=== PATIENT | female | born 1965 | race Caucasian/White ===

== ENCOUNTER 2023-11-21 21:49 | Emergency (ER) | payer OTHER, SELFPAY ==
--- NOTE | ~2023-11-21 | XR_ITS ---
EXAMINATION: XR CHEST CLINICAL INFORMATION: Cough COMPARISON: None available. TECHNIQUE: Frontal view of the chest was obtained. FINDINGS: Lungs are clear. No consolidation, pneumothorax, or pleural effusion. Cardiac and mediastinal contours are normal. Pulmonary vasculature is unremarkable. Osseous structures are unremarkable. XR/XR chest 1V IMPRESSION: No acute cardiopulmonary findings
[2023-11-21 22:58] VITALS: BP 141/62; PULSE 74; RESP 20; TEMP 36.5; O2SAT 96; BMI 31.0
--- NOTE | 2023-11-21 23:03 | ECG_ITS ---
Test Reason : WEAKNESS Blood Pressure : / mmHG Vent. Rate : 074 BPM Atrial Rate : 074 BPM P-R Int : 138 ms QRS Dur : 078 ms QT Int : 384 ms P-R-T Axes : 035 006 039 degrees QTc Int : 426 ms Normal sinus rhythm Nonspecific ST and T wave abnormality Abnormal ECG No previous ECGs available Referred By: Generic ED Physician Electronically Signed By:CHAPIN CALDERA
[2023-11-21 23:38] LABS: Basophils Percent Auto 0.6 % (0-2); Eosinophils Absolute Auto 0.1 X10*3/uL (0.0-0.4); Eosinophils Percent Auto 2.1 % (0-4); Hematocrit 40.7 % (37.0-47.0); Hemoglobin 13.8 g/dl (12.0-16.0); Imm Gran Abs Auto 0.01 X10*3/uL (0.00-0.03); Imm Gran Pct Auto 0.2 % (0.0-0.4); Lymphocytes Absolute Auto 2.8 X10*3/uL (1.2-4.9); Lymphocytes Percent Auto 42.2 % (20-40); MANUAL DIFF FLAG NO; Mean Corpuscular HGB Conc 33.9 g/dl (31.0-35.0); Mean Corpuscular Hemoglobin 29.6 pg (27.0-33.0); Mean Corpuscular Volume 87.3 fL (80.0-98.0); Mean Platelet Volume 9.9 fL (9.4-12.3); Monocytes Absolute Auto 0.7 X10*3/uL (0.1-1.2); Monocytes Percent Auto 9.9 % (2-11); Platelet Count 254 X10*3/uL (160-400); Red Blood Count 4.66 X10*6/uL (4.20-5.50); Red Cell Distribution Width 11.8 % (11.0-16.0); White Blood Count 6.6 X10*3/uL (4.8-10.8)
[2023-11-21 23:50] LABS: COVID-19 Test Negative (Negative); IDNOW Serial# 152EDE1D
[2023-11-21 23:51] LABS: Anion Gap 15 (12-20); Blood Urea Nitrogen 14 mg/dL (9-16); Calcium 9.8 mg/dL (8.4-10.2); Carbon Dioxide 25 mmol/L (22-29); Chloride 106 mmol/L (96-108); Creatinine Clr Calc Pharmacy 79.6; Estimated Glomerular Filt Rate > 60; Glucose Random 114 mg/dL (60-115); Potassium 3.9 mmol/L (3.3-5.1); Sodium 142 mmol/L (135-145)
[2023-11-21 23:55] LABS: IDNOW Serial# 08D9AD1C; Influenza A Negative (Negative); Influenza B2 Negative (Negative)
[2023-11-22 00:01] LABS: Troponin-I High Sensitivity < 2.7 ng/L (<3.5-17.0)
[2023-11-22 01:22] VITALS: BP 148/77; PULSE 64; RESP 14; TEMP 36.3; O2SAT 97
--- NOTE | 2023-11-22 02:28 | ED.URI ---
HPI - URI/Sore Throat General Chief Complaint: Upper Respiratory Symptoms Stated Complaint: awful cough, hurts to breathe, chest congestion Time Seen by Provider: 11/22/23 02:27 Source: patient Mode of arrival: ambulatory Limitations: no limitations History of Present Illness ED Provider: Dr. Rojas Rios HPI Narrative: 58-year-old female with a history of hyperlipidemia, tobacco use disorder, cocaine use disorder in remission who presents emergency department for evaluation of cough, shortness of breath, myalgias, arthralgias, left-sided chest pain x4 days. Patient states that her symptoms started out with a sore throat but this resolved after 2 days. She states she has had a cough which is nonproductive but persistent. She has left-sided chest pain which is worse with coughing. She feels short of breath at rest and with exertion. She denied fever, chills, nausea, vomiting or diarrhea. Patient does smoke 1/2 pack of cigarettes per day times 30 years. She states that she did use cocaine but stop using cocaine in 2017 and does not use any drugs or drink alcohol. Related Data Previous Rx's ?Medication ?Instructions ?Recorded doxycycline hyclate 100 mg tablet 100 mg PO Q12H 5 days #10 tabs 11/22/23 Allergies Allergy/AdvReac Type Severity Reaction Status Date / Time No Known Allergies Allergy Verified 11/21/23 23:00 Review of Systems Review of Systems: Yes all other systems are reviewed and are negative [facility] Past Medical History [facility] Narrative: Social history: She smokes 1/2 pack of cigarettes per day times 30 years. She denies alcohol use. She denies drug use. Social History Social History Advance Directives: No Advance Directives Information Provided: No Do you have a plan to hurt others: No Plan Physical Exam Vital Signs: Vital Signs: Last Vital Signs Temp 97.4 F 11/22/23 01:22 Pulse 64 11/22/23 01:22 Resp 14 11/22/23 01:22 BP 148/77 H 11/22/23 01:22 Pulse Ox 97 11/22/23 01:22 O2 Del Method Room Air 11/22/23 01:22 BMI result Body Mass Index 31.0 Vital signs were normal except for an elevated blood pressure of 148/77 Exam: General: Awake, alert in no distress Head: Normocephalic, atraumatic EENT: PERRL, Lids normal, sclera normal, conjunctiva normal, nose normal , ears normal, throat without erythema or exudates Neck: Supple, no adenopathy Lung: breath sounds symmetric, no wheezing, rales or rhonchi Chest: symmetric movement, nontender Heart: regular rate and rhythm, normal S1, S2 no murmurs or rubs Abdomen: soft, non-tender, nondistended, normal bowel sounds Back: no vertebral tenderness, no CVAT Extremities: no deformities, moves all extremities symmetrically Neuro: Awake, alert, oriented, normal speech, cranial nerves intact, moves all extremities symmetrically Psych: Pleasant, cooperative Medical Decision Making Medical Decision Making MDM Narrative: 61-year-old female with a history of hyperlipidemia, cocaine use disorder in remission and tobacco use disorder who presents emergency department for evaluation of 4 days of cough, left-sided chest pain, shortness of breath, dyspnea on exertion, myalgias and arthralgias. Vital signs revealed an elevated blood pressure otherwise were unremarkable. Physical examination was unremarkable. Differential diagnosis: ?Includes but is not limited to myocardial infarction, myocardial ischemia, pneumonia, bronchitis, anemia, electrolyte abnormalities Following evaluation was ordered: CBC, CMP, troponin, EKG, chest x-ray, COVID-19, influenza, RSV Patient was initially treated with the following: Doxycycline 100 mg orally, ibuprofen 40 mg orally Course: 03:28 My interpretation patient's laboratory evaluation as follows: CBC was normal. CMP was normal. High sensitive troponin I was below detectable limits. COVID-19, influenza and RSV were negative. Chest x-ray revealed no acute infiltrates EKG was unremarkable. Patient's symptoms are consistent with acute bronchitis given her tobacco use disorder she will be treated for possible bacterial process with doxycycline 100 mg q.12 hours x5 days. She was given her 1st dose here in the emergency department she was also given ibuprofen 40 mg orally for her chest pain. She was given printed and verbal instructions and discharged home. Admission/Observation Consideration of admission/observation: Escalation of care including admission/observation considered Lab Data [facility] Lab Attestation statement: I reviewed the patient's lab results. 11/21/23 23:31 11/21/23 23:31 Labs: Lab Results 11/21/23 11/21/23 Range/Units 23:26 23:31 WBC 6.6 (4.8-10.8) X10*3/uL RBC 4.66 (4.20-5.50) X10*6/uL Hgb 13.8 (12.0-16.0) g/dl Hct 40.7 (37.0-47.0) % MCV 87.3 (80.0-98.0) fL MCH 29.6 (27.0-33.0) pg MCHC 33.9 (31.0-35.0) g/dl RDW 11.8 (11.0-16.0) % Plt Count 254 (160-400) X10*3/uL MPV 9.9 (9.4-12.3) fL Immature Gran % (Auto) 0.2 (0.0-0.4) % Neut % (Auto) 45.0 (45-73) % Lymph % (Auto) 42.2 H (20-40) % [place] % (Auto) 9.9 (2-11) % Eos % (Auto) 2.1 (0-4) % Baso % (Auto) 0.6 (0-2) % Lymph # (Auto) 2.8 (1.2-4.9) X10*3/uL [place] # (Auto) 0.7 (0.1-1.2) X10*3/uL Eos # (Auto) 0.1 (0.0-0.4) X10*3/uL Baso # (Auto) 0.0 (0.0-0.2) X10*3/uL Abs Immat Gran (auto) 0.01 (0.00-0.03) X10*3/uL Absolute Neuts (auto) 3.0 (2.0-8.3) x10*3/uL Absolute Nucleated RBC 0.000 (0.0-0.012) X10*3/uL Nucleated RBC % (auto) 0.0 (0.0-0.2) /100WBC Sodium 142 (135-145) mmol/L Potassium 3.9 (3.3-5.1) mmol/L Chloride 106 (96-108) mmol/L Carbon Dioxide 25 (22-29) mmol/L Anion Gap 15 (12-20) BUN 14 (9-16) mg/dL Creatinine 0.75 (0.5-1.4) mg/dL Estim Creat Clear Calc 79.6 Estimated GFR > 60 Random Glucose 114 (60-115) mg/dL Calcium 9.8 (8.4-10.2) mg/dL Troponin I High Sens < 2.7 (<3.5-17.0) ng/L COVID-19 (BERE) Negative (Negative) COVID-19 Clin Com See Note Influenza Type A (KRISHNA) Negative (Negative) Influenza Type B (KRISHNA) Negative (Negative) Influenza A & B Note See Note Independent Interpretation I performed an independent interpretation of an: Plain X-Ray Interpretation: My independent interpretation patient's chest x-ray is as follows: No acute disease. My independent interpretation patient's 12 EKG done at 23:13 hours is as follows: Normal sinus rhythm rate of 74, normal IN interval, QRS duration QTC interval, no ST segment elevation, no ST segment depression, no significant T-wave abnormalities, no PACs, no PVCs Radiology Impression Discussion of test interpretation with radiology: I have reviewed the radiologist's reading. Radiologist Impression: XR chest 1V IMPRESSION: No acute cardiopulmonary findings Dictated By: Sg Giron MD Discharge Plan Discharge Clinical Impression: Acute bronchitis, Tobacco use disorder Patient Disposition: Home, Self-Care Instructions: Acute Bronchitis (ED) Additional Instructions: Your chest x-ray was unremarkable. Your laboratory evaluation was normal. Your COVID-19, RSV and influenza tests were negative. Your symptoms are consistent with bronchitis which is an infection of your breathing tubes. Take doxycycline 100 mg, 1 pill every 12 hours for 5 days Take ibuprofen 200 mg pills, 2 pills every 6 hours as needed for pain or fever. Take Tylenol (acetaminophen) 500 mg pills, 2 pills every 6 hours as needed for pain or fever. Follow-up with your doctor in 2 days. Please return to the emergency department if your symptoms get worse or if you develop any symptoms that are concerning to you. Prescriptions: New doxycycline hyclate 100 mg tablet 100 mg PO Q12H 5 Days Qty: 10 0RF Print Language: Belarusian
[2023-11-22 03:42] VITALS: BP 137/72; PULSE 58; RESP 20; TEMP 37; O2SAT 97
[2023-11-22] MEDS: Doxycycline Monohydrate 100 MG CAPSULE PO (03:43)
[2023-11-22] MEDS: Ibuprofen 400 MG TABLET PO (03:43)
[2023-11-22 03:50] VITALS: BP 137/72; PULSE 58; RESP 20; TEMP 37; O2SAT 97
== END 2023-11-22 03:50 | disposition home or self-care (01) ==
PROVIDERS: Emergency Provider Emergency Medicine Emergency Medical Services; PCP Internal Medicine
DX: J20.9 Acute bronchitis, unspecified (principal); F17.210 Nicotine dependence, cigarettes, uncomplicated; Z11.52 Encounter for screening for COVID-19
CPT/HCPCS: 36415; 71045; 80048; 84484; 85025; 87502; 87635; 93005; 99284

== ENCOUNTER → 2023-11-21 23:03 | Outpatient (BNV) | payer OTHER, SELFPAY | PROVIDERS: Emergency Provider Emergency Medicine Emergency Medical Services; PCP Internal Medicine; Visit Provider Internal Medicine | DX: R53.1 Weakness (principal); R94.31 Abnormal electrocardiogram [ECG] [EKG] | CPT/HCPCS: 93010 ==

== ENCOUNTER 2024-06-21 10:06 | Emergency (ER) | payer MEDICARE, SELFPAY ==
--- NOTE | ~2024-06-21 | XR_ITS ---
EXAMINATION: XR HAND AND WRIST COMPLETE RIGHT HISTORY: Injury COMPARISON: There are no prior studies available for comparison. FINDINGS: Five views of the right hand and wrist are submitted. Osseous mineralization is normal. There is a faint linear lucency involving the radial styloid which could represent nondisplaced fracture. The bones are otherwise intact. There is no dislocation. There are degenerative changes involving the radial aspect of the carpus. The soft tissues are unremarkable. XR/XR hand wrist RT IMPRESSION: Possible nondisplaced fracture of the radial styloid. Clinical correlation is recommended. Electronically signed by: Lamberto Gomez MD 06/21/2024 11:21 AM JOSH
[2024-06-21 10:29] VITALS: BP 121/70; PULSE 75; RESP 16; TEMP 36.4; O2SAT 97; BMI 31.5
--- OUTSIDE RECORDS SUMMARY | 2024-06-21 11:10 | XMS_ITS | Continuity of Care Document ---
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 Name Role Phone Unavailable Unavailable Unavailable Allergies, [...] EST URINE TEST OFFICE/OUTPATIENT VISIT, EST [facility] [place] [facility] [place] CULTURE SCREEN ONLY Advance Directives Directive Yes / No Effective Date File Name No Information Encounters Encounter Description Practice Location Reason(s) For Visit Diagnoses Date Provider Providers Copied on Encounter [facility], [address], [place], [place], [id number], [place] tel:[phone] [facility] No Information 5 No Information OFFICE/OUTPA TIENT VISIT, EST [facility], [address] [facility] [address], [place], [place], [id number], [place] tel:[phone] [facility] sore throat (chief complaint) Acute pharyngitis 5 No Information [facility], [address], [place], [place], [id number], [place] tel:[phone] [facility] No Information 4 No Information PREV VISIT, EST, AGE 40-64 [facility], [address], [place], [place], [id number], [place] tel:[phone] [facility] preventive exam (chief complaint) Routine Medical ExamNEED FOR PROPHYLACTIC VACCINATION WITH COMBINED DIPHTHERIA-TE TANUS-PERTUSS IS (DTP) (DTAP) VACCINEMultip le neviDecreased visual acuityLump in vaginaRoutine Medical Exam 4 No Information OFFICE/OUTPA TIENT VISIT, EST [facility], [address], [place], [place], [id number], [place] tel:[phone] [facility] [place] F/U LAB RESULTS (chief complaint) Nondependent tobacco use disorderDepre ssive disorder, not elsewhere classifiedLAB ORATORY EXAM NOS 2 No Information [facility], [address], [place], [place], [id number], [place] tel:[phone] [facility] No Information 2 Services Enabling. [address] [place], [address]. tel:[phone] [facility], [address], [place], [place], [id number], [place] tel:[phone] [facility] No Information 2 Services [address]. [address] [place], [address]. tel:[phone] [facility], [address], [place], [place], [id number], [place] tel:[phone] Converted Locations No Information 2 No Information [facility], [address], [place], [place], [id number], [place] tel:[phone] [facility] Other general counseling and advice on contraceptive managementHip joint replacementBr east screening, unspecified 2 No Information [facility], [address], [place], [place], [id number], [place] tel:[phone] [facility] Nondependent tobacco use disorderConju nctivitis, unspecifiedAc lana pharyngitis 2 No Information [facility], [address], [place], [place], [id number], [place] tel:[phone] Converted Locations No Information 2 No Information [facility], [address], [place], [place], [id number], [place] tel:[phone] Converted Locations No Information 1 No Information [facility], [address], [place], [place], [address], [place] tel:[phone] [facility] Pain in joint involving pelvic region and thigh No Information [facility], [address], [place], [place], [id number], [place] tel:[phone] Converted Locations No Information 1 Z-Converted Provider. . [facility], [address], [place], [place], [id number], tel:[phone] [facility] Anxiety disorder in conditions classified elsewhereNond ependent [...] Record Payers Payer name Insurance type Covered constitution party ID Cassidy peguero(s) [facility] [employer] CI [id number] Social History Type Description Quantity Date Captured Comments Sex Female Smoking Status No Information Chief Complaint And Reason For Visit No Information Reason For Referral Reason For Referral No Information Plan Of Treatment Date Type Action Status Goal Unhealthy drug use screening . Due on due Goal CT-Colonography. Due on due Goal FIT-DNA. Due on due Goal Zoster vaccine (1st). Due on due Goal Document SOGI Information. D ue on due Goal Td vaccine. Due on due Goal Lipid panel. Due on 015 due Goal Tdap. Due on due Goal Influenza vaccine. Due on due Goal Pap/HPV testing. Due on due Goal PAP. Due on due Goal Mammogram. Due on 5 due Goal APE. Due on due Referral Ordered: MAMMOGRAM SCREENING, BILATERAL Appointment date/timeframe: 12/04/2013 ordered Referral Ordered: COLONOSCOPY SCREENING ordered Referral Ordered: Referral: Dermatology. Evaluate and treat. ordered Referral Ordered: Referral: LEARNING PROGRAM MANAGER. Evaluate and treat. Appointment date/timeframe: 01/11/2014 ordered Referral Ordered: Referral: Store Receiving Specialist. Evaluate and treat. 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
--- NOTE | 2024-06-21 11:11 | ED_ITS ---
HPI - General Adult General Chief complaint: Extremity Problem Stated complaint: R Hand Wrist Pain No Injury Time Seen by Provider: 06/21/24 10:45 Source: patient Mode of arrival: ambulatory Limitations: no limitations History of Present Illness ED Provider: Ruthann [facility] narrative: Patient is a 58-year-old right hand dominant female presenting with complaint of right wrist pain for the past week. Now remembers that she fell onto her right hand around 1-1.5 weeks ago. States did not have pain or swelling initially after fall. Denies weakness, numbness, tingling. complaint: wrist pain Onset (ago): day(s) Quality: aching Pain Consistency: constant Associated symptoms: denies other symptoms Treatments prior to arrival: none Related Data Previous Rx's ?Medication ?Instructions ?Recorded doxycycline hyclate 100 mg tablet 100 mg PO Q12H 5 days #10 tabs 11/22/23 Allergies Allergy/AdvReac Type Severity Reaction Status Date / Time No Known Allergies Allergy Verified 06/21/24 10:32 Review of Systems Review of Systems: As per HPI Yes all other systems are reviewed and are negative Constitutional: Constitutional: Reports as per HPI [facility] Social History Social History Advance Directives: No Advance Directives Information Provided: Yes Do you have a plan to hurt others: No Plan Physical Exam ED Vital Signs: Vital Signs - 24 hr 06/21/24 10:29 Temperature 97.5 F Pulse Rate 75 Respiratory Rate 16 Blood Pressure 121/70 Pulse Oximetry 97 Oxygen Delivery Method Room Air BMI result Body Mass Index 31.5 Vital signs have been reviewed and appear to be correct. Blood pressure normal. Heart rate normal. Respiratory rate normal. Temperature normal. Oxygen saturation normal. Const General: cooperative, healthy appearing and no acute distress Orientation/consciousness: oriented to person, oriented to place, oriented to time and patient oriented x3 Limitations: no limitations HENMT Head: Yes normocephalic and Yes atraumatic Ears: external ears normal General nose exam: Normal external nose present Face and sinus: Yes face symmetric Mouth: oropharynx normal and moist mucous membranes Throat: Yes uvula midline Eyes Pupils: Equal, round and reactive pupils present Neck Neck: Yes normal visual inspection and Yes supple Resp Effort & Inspection: normal respiratory effort and able to speak in complete sentences Auscultation: clear to auscultation bilaterally Cardio Rate: regular rate Rhythm: regular rhythm Heart sounds: S1 normal heart sound present and S2 normal heart sound present GI Palpation (GI): Soft to palpation and nontender Auscultation: normoactive bowel sounds General: Yes no CVA tenderness Back/Spine/Pelvis Back: no CVA tenderness Skin General skin exam: elasticity normal and turgor normal Neuro General: oriented to person, oriented to place, oriented to time, patient oriented x3, moves all extremities, no focal motor deficits and CN's II-XI intact bilaterally Cranial nerves: Yes Equal, round and reactive pupils present Cognition (Neuro): normal cognition Extrem General: Yes full ROM, Yes no pedal edema and Yes no calf tenderness Right upper extremity: wrist Details: tenderness Location: of the distal radius, swelling (distal radius) and abnormal ROM Details: pain with passive ROM during Details: with extension and with flexion and Extremity exam: right hand Details: vascular exam Details: radial pulse present and normal ROM of fingers Psych Mental Status: mental status grossly normal Affect: normal affect Thought process: Normal thought process present Procedures Orthopedic Splinting/Casting Injury #1: Side: right Upper Extremity Injury Location: wrist Upper Extremity Immobilizer: sugar tong splint Additional Comments: +CMS distal prior to and after application of splint Medical Decision Making Medical Decision Making [facility] Narrative: Patient is a 58-year-old right hand dominant female presenting with complaint of right wrist pain for the past week. On exam patient is awake, A+Ox3, VS WNL, afebrile, normal neurological exam without focal deficits, physical exam findings as above. Given reported symptoms and physical exam findings, initial differential includes but is not limited to contusion, fracture, dislocation. X-ray notable for nondisplaced radial styloid fracture. My interpretation is in agreement with the radiologist's interpretation. Results discussed with patient and all questions answered. Patient placed in splint as per procedure note. Will refer to ortho for follow up. Return precautions discussed at bedside. Advised ice, tylenol, ibuprofen. Patient verbalized understanding of and agreement with plan. Differential Diagnosis Differential Diagnoses: The differential diagnosis associated with the presenta tion includes As per [facility] Independent Interpretation I performed an independent interpretation of an: Plain X-Ray Interpretation: Right nondisplaced radial styloid fracture Radiology Impression Discussion of test interpretation with radiology: I have reviewed the radiologist's reading. Radiologist Impression: IMPRESSION: Possible nondisplaced fracture of the radial styloid. Clinical correlation is recommended. External Record Review External record reviewed: Inpatient record, Office record and Outpatient record Discharge Plan Discharge Clinical Impression: Closed fracture of radial styloid Qualifiers: Encounter type: initial encounter Fracture alignment: nondisplaced Laterality: right Qualified Code(s): S52.514A - Nondisplaced fracture of right radial styloid process, initial encounter for closed fracture Patient Disposition: Home, Self-Care Instructions: Arm Fracture in Adults (ED), Wrist Fracture in Adults (ED), Splint Care (ED) Additional Instructions: You have been evaluated in the emergency department today for wrist pain. Your evaluation showed a fracture of your wrist. We have placed your wrist in a splint today, avoid getting the splint wet. Please rest, ice, and elevate your arm to help it heal. Use use Tylenol or ibuprofen per package directions every 6 hours as needed for pain. If necessary, you can alternate these medications and take one medication every 3 hours. For instance, at noon take ibuprofen, then at 3:00 p.m. take Tylenol, then at 6:00 p.m. take ibuprofen. Please follo w-up with the orthopedic surgeon within 1 week. Return to the emergency department if you experience worsening pain, numbness, tingling, change of color in your fingers, or any other concerning symptoms. Prescriptions: No Action doxycycline hyclate 100 mg tablet 100 mg PO Q12H 5 Days Qty: 10 0RF Referrals: [facility] [Provider Group] Stand Alone Forms: Work/School Release Print Language: Khmer
[2024-06-21 13:07] VITALS: BP 122/68; PULSE 71; RESP 16; TEMP 36.7; O2SAT 97
== END 2024-06-21 13:08 | disposition home or self-care (01) ==
PROVIDERS: Emergency Provider Student in an Organized Health Care Education/Training Program; PCP Internal Medicine
DX: S52.514A Nondisplaced fracture of right radial styloid process, initial encounter for closed fracture (principal); M25.531 Pain in right wrist; W19.XXXA Unspecified fall, initial encounter; Y93.89 Activity, other specified; Y92.89 Other specified places as the place of occurrence of the external cause; Y99.8 Other external cause status
CPT/HCPCS: 29125; 73110; 73130; 99282; 99284

== ENCOUNTER 2024-06-25 14:06 | Emergency (ER) | payer MEDICARE, SELFPAY ==
[2024-06-25 15:11] VITALS: BP 127/80; PULSE 81; RESP 18; TEMP 36.7; O2SAT 94; BMI 32.1
--- NOTE | 2024-06-25 15:11 | ED.GENADULT ---
HPI - General Adult General Stated complaint: Needs splint redone Source: patient Mode of arrival: ambulatory Limitations: no limitations History of Present Illness ED Provider: Tena Ramirez NP HPI narrative: Patient is a 59-year-old female who presents to the emergency department for evaluation she states she was seen in the emergency department 06/21/2024, after a fall with resultant right wrist pain. Was diagnosed with a fracture of the radial styloid placed in a sugar-tong splint and discharged home. States that she has outpatient follow-up with orthopedics this week. She presents today as she is complaining of pain and a sensation that my circulation is being cut off requesting re-evaluation of her splint. Is able to move the digits. She reports that last night while resting she noticed the distal tips of her fingers to be turning blue. She elevated her arm and this resolved. She reports at this time she did not continue to have an impaired circulation sensation but does admit that around the elbow it feels very tight Related Data Previous Rx's ?Medication ?Instructions ?Recorded doxycycline hyclate 100 mg tablet 100 mg PO Q12H 5 days #10 tabs 11/22/23 Allergies Allergy/AdvReac Type Severity Reaction Status Date / Time No Known Allergies Allergy Verified 06/25/24 15:17 Review of Systems Review of Systems: Yes all other systems are reviewed and are negative PMFSH Past Medical History Attestation statement: The following information was validated with the patient. Source: old records reviewed Physical Exam ED Appearance: Alert.?Oriented to person, place and time. No acute distress.?Normal affect.? CVS: Heart sounds normal. Normal heart rate and rhythm.? Pulses normal.?? Respiratory: No respiratory distress.? Lung sounds clear to auscultation bilaterally?? Skin: Skin warm and dry.? Normal skin color.? Extremities: No extremity edema.? 2+ radial pulse upon removal of sugar-tong splint. Compartments are soft. Able to move the digits. Able to flex and extend of the elbow. The Sanford bandage was a bit tight particularly around the elbow joint. Neuro: Moves all extremities spontaneously. Sensation intact bilaterally. Ambulates with normal steady gait. Medical Decision Making Medical Decision Making [facility] Narrative: Patient is a 59-year-old female who presents to the emergency department for re-evaluation of sugar-tong splint to the right upper extremity due to a radial styloid fracture, on evaluation the Sanford bandage was a bit tight particularly around the elbow joint, with removal of the fiberglass splint compartments were soft, 2+ radial pulse. Not consistent with neurovascular compromise or compartment syndrome. Sanford bandage was replaced into reports significant improvement in the pressure sensation she was experiencing. She was offered a sling to help alleviate the weight from the splint she however declines. Advised outpatient follow-up with orthopedics as scheduled. Differential Diagnosis Differential Diagnoses: The differential diagnosis associated with the presentation includes (See narrative above) External Record Review External record reviewed: Outpatient record Prescription Management I considered prescription management with: Pain Medication (Acetaminophen/ibuprofen) Discharge Plan Discharge Clinical Impression: Closed fracture of radial styloid Qualifiers: Encounter type: initial encounter Fracture alignment: nondisplaced Laterality: right Qualified Code(s): S52.514A - Nondisplaced fracture of right radial styloid process, initial encounter for closed fracture Patient Disposition: Home, Self-Care Additional Instructions: Be sure to rest, elevate your arm above the level of your chest, apply ice to the area for 10-15 minutes 3-4 times daily follow-up with orthopedics as scheduled. If you develop worsening pain, numbness, tingling, inability to move the hands or fingers you should seek re-evaluation Prescriptions: No Action doxycycline hyclate 100 mg tablet 100 mg PO Q12H 5 Days Qty: 10 0RF Print Language: [place] Islander
--- OUTSIDE RECORDS SUMMARY | 2024-06-25 15:27 | XMS_ITS | Continuity of Care Document ---
Author Organization [facility] Address [address] [place] [address],[address] [place] [address] Phone Care Team Providers Care Marketing Project Coordinator Name Role Phone Unavailable Unavailable Unavailable Allergies, [...] EST URINE TEST OFFICE/OUTPATIENT VISIT, EST Lab Hector Lab [facility]ector CULTURE SCREEN ONLY Advance Directives Directive Yes / No Effective Date File Name No Information Encounters Encounter Description Practice Location Reason(s) For Visit Diagnoses Date Provider Providers Copied on Encounter [facility], [address] [facility] [address], [place], [place], [id number], [place] tel:[phone] [facility] No Information 5 No Information OFFICE/OUTPA TIENT VISIT, EST [facility], [address] [facility] [address], [place], [place], [id number], [place] tel:[phone] [facility] sore throat (chief complaint) Acute pharyngitis 5 No Information [facility], [address] [facility] [address], [place], [place], [id number], [place] tel:[phone] [facility] No Information 4 No Information PREV VISIT, EST, AGE 40-64 [facility], [address] [facility] [address], [place], [place], [id number], [place] tel:[phone] [facility] preventive exam (chief complaint) Routine Medical ExamNEED FOR PROPHYLACTIC VACCINATION WITH COMBINED DIPHTHERIA-TE TANUS-PERTUSS IS (DTP) (DTAP) VACCINEMultip le neviDecreased visual acuityLump in vaginaRoutine Medical Exam 4 No Information OFFICE/OUTPA TIENT VISIT, EST [facility], [address] [facility] [address], [place], [place], [id number], [place] tel:[phone] [facility] F/U LAB RESULTS (chief complaint) Nondependent tobacco use disorderDepre ssive disorder, not elsewhere classifiedLAB ORATORY EXAM NOS 2 No Information [facility], [address], [place], [place], [id number], [place] tel:[phone] [facility] No Information [address] [place], [address]. tel:[phone] [facility], [address], [place], [place], [id number], [place] tel:[phone] [facility] No Information [address] [place], [address]. tel:[phone] [facility], [address] [facility] [address], [place], [place], [id number], [place] tel:[phone] Converted Locations No Information 2 No Information [facility], [address], [place], [place], [id number], [place] tel:[phone] [facility] Other general counseling and advice on contraceptive managementHip joint replacementBr east screening, unspecified 2 No Information [facility], [address], [place], [place], [id number], [place] tel:[phone] [facility] Nondependent tobacco use disorderConju nctivitis, unspecifiedAc fond du lac pharyngitis 2 No Information [facility], [address], [place], [place], [id number], [place] tel:[phone] Converted Locations No Information 2 No Information [facility], [address], [place], [place], [id number], [place] tel:[phone] Converted Locations No Information 1 No Information [facility], [address], [place], [place], [id number], [place] tel:[phone] [facility] Pain in joint involving pelvic region and thigh 1 No Information [facility], [address], [place], [place], [id number], [place] tel:[phone] Converted Locations No Information 1 Z-Converted Provider. . [facility], [address], [place], [place], [id number], tel:[phone] [facility] Anxiety disorder in conditions classified elsewhereNond [...] type Covered constitution party ID Cassidy peguero(s) [facility] CI [id number] Social History Type Description Quantity Date Captured Comments Sex Female Smoking Status No Information Chief Complaint And Reason For Visit No Information Reason For Referral Reason For Referral No Information Plan Of Treatment Date Type Action Status Goal Zoster vaccine (1st). Due on due Goal FIT-DNA. Due on due Goal CT-Colonography. Due on due Goal Unhealthy drug use screening . Due on due Goal Document SOGI Information. D ue on due Goal Lipid panel. Due on 015 due Goal Td vaccine. Due on 24 due Goal APE. Due on due Goal Mammogram. Due on due Goal PAP. Due on due Goal Tdap. Due on due Goal Influenza vaccine. Due on due Goal Pap/HPV testing. Due on due Referral Ordered: MAMMOGRAM SCREENING, BILATERAL Appointment date/timeframe: 12/04/2013 ordered Referral Ordered: COLONOSCOPY SCREENING ordered Referral Ordered: Referral: Dermatology. Evaluate and treat. ordered Referral Ordered: Referral: CODE OFFICIAL. Evaluate and treat. Appointment date/timeframe: 01/11/2014 ordered Referral Ordered: Referral: Human Resources Operations Director. Evaluate and treat. 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
[2024-06-25 15:38] VITALS: BP 124/78; PULSE 78; RESP 18; TEMP 36.6; O2SAT 94
== END 2024-06-25 15:39 | disposition home or self-care (01) ==
PROVIDERS: Emergency Provider Emergency Medicine Emergency Medical Services; PCP Internal Medicine
DX: S52.514A Nondisplaced fracture of right radial styloid process, initial encounter for closed fracture (principal); M25.531 Pain in right wrist; X58.XXXA Exposure to other specified factors, initial encounter; Y93.9 Activity, unspecified; Y92.9 Unspecified place or not applicable; Y99.8 Other external cause status
CPT/HCPCS: 99282

== ENCOUNTER 2024-06-27 10:30 | Outpatient (AMB) | payer MEDICARE, SELFPAY ==
--- NOTE | 2024-06-27 10:40 | A.OFFVIS_ITS ---
Vital Signs 06/27/24 10:46 Height 5 ft 3 in Weight 181 lb BMI 32.1 Intake Visit Reasons: ED f/u RT Closed fracture of radial styloid Intake Note: Kelly is a 58 year old right hand dominant female presents today for a new patient visit for her right wrist pain s/p ED visit on 07/01/24. States she recalls falling about 2-4 weeks ago. She did not feel pain initially however she was seen in ED due to increase of pain and swelling. Xrays taken and was told she has a right hand fracture of radial styloid. She was splinted and referred to orthopedic. Initially she did not think to much of an injury as she has a history of wrist pain. Currently states her pain is located at her [facility] with a current pain level 2 out of 10. Allergies No Known Allergies Allergy (Verified 06/27/24 10:42) HPI HPI ED f/u RT Closed fracture of radial styloid: Details: Kelly is a 59 year old right hand dominant woman who presents for a right radial styloid fracture, etiology unclear, DOI unclear, sometime between 05/28/24-06/14/24. She was seen in the ED 06/21/24 and placed in a Sugar-tong splint. She presents today saying she is doing well overall. She says she has mild pain that she feels particularly near the base of her thumb, but this is tolerable and improved from prior. She says she is unsure how she injured herself, and when exactly it happened. She reports a Hx of falls and says she is unsteady on her feet at times. 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 Review of Systems Const All systems reviewed & are unremarkable except as noted in HPI and below Physical Exam Vital Signs: BMI result Body Mass Index 32.1 Const General: cooperative, healthy appearing and no acute distress Orientation/consciousness: patient oriented x3 HEENT Head: Yes normocephalic and Yes atraumatic Eyes EOM: EOMs intact bilaterally Resp Effort & Inspection: normal respiratory effort and able to speak in complete sentences Cardio Jugular venous distension: no JVD Skin General skin exam: turgor normal Rashes: no rashes Neuro General: patient oriented x3 Extrem Other: Evaluation of Right Upper Extremity: The patient is alert, oriented, and in no acute distress Neuro: Median, Ulnar, Radial nerves motor and sensory intact and sensation is normal to the tips of all digits Vascular: Cap refill brisk ROM: She can make a fist and extend all her digits Skin: No lacerations or abrasions. General: No erythema or evidence of infection. Resolving ecchymosis over the volar aspect of her wrist Tender over the dorsal aspect of the distal radius Tender over the scaphoid tubercle No snuffbox tenderness No tenderness along the ulna No DRUJ tenderness No pain with proximal forearm squeeze Radiographs: 3 views of the right wrist were taken and viewed by me today in clinic. These were also compared to radiographs from 06/21/2024. They show a non-displaced transverse metaphyseal distal radius fracture. There is also a bit of an irregularity at the scaphoid tubercle, fracture unclear Psych Appearance: grossly normal Affect: normal affect Attitude: cooperative Office Procedures AMB Fracture Care Details: Fracture care 49941 Fracture Billing Code: Fracture Billing Code Assessment & Plan Assessment & Plan (1) Distal radius fracture, right: Code(s): S52.501A - Unspecified fracture of the lower end of right radius, initial encounter for closed fracture Category: Medical Plan Assessment & Plan: 1. Right transverse metaphyseal distal radius fracture, nondisplaced Involving the radial styloid Etiology unclear, DOI unclear, date of injury presumed to be around 06/14/24 2. 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 She will follow up in 2 weeks, with X-rays 3V R wrist plus a scaphoid view, OOP We will also reassess the scaphoid at that time Scribed for Shagufta Melo MD by Cam Stinson, director of medical staff services, on 06/27/24 at 10:50 AM, EST. Orders: Orders XR wrist RT min 3V Today M25.531 - Pain in right wrist Medications: Discontinued doxycycline hyclate Discontinued Reason: Patient no longer taking 100 mg PO Q12H 5 days 10 tabs 0RF Coding Level of Care Code New Pt Level 3 (30838) Diagnoses Distal radius fracture, right S52.501A CPT Codes Fracture Care - Fracture Billing Code: Fracture Billing Code ([id number])
[2024-06-27 10:46] VITALS: BMI 32.1
--- OUTSIDE RECORDS SUMMARY | 2024-06-27 12:11 | XMS_ITS | Continuity of Care Document ---
Author Organization [facility] Address [address] [place] [address] 2,[address] [place] [address] Phone Care Team Providers Care Proposal Lead Writer Name Role Phone Unavailable Unavailable Unavailable Allergies, [...] EST URINE TEST OFFICE/OUTPATIENT VISIT, EST [facility] [place] [facility] [place] CULTURE SCREEN ONLY Advance Directives Directive Yes / No Effective Date File Name No Information Encounters Encounter Description Practice Location Reason(s) For Visit Diagnoses Date Provider Providers Copied on Encounter [facility], [address] [facility], [place], [place], [id number], [place] tel:[phone] [facility] No Information 5 No Information OFFICE/OUTPA TIENT VISIT, EST [facility], [address] [facility],[address], [place], [place], [id number], [place] tel:[phone] [facility] sore throat (chief complaint) Acute pharyngitis 5 No Information [facility], [address] [facility] [address], [place], [place], [id number], [place] tel:[phone] [facility] No Information 4 No Information PREV VISIT, EST, AGE 40-64 [facility], [address] [facility] [address], [place], [place], [id number], [place] tel:[phone] [facility] preventive exam (chief complaint) Routine Medical ExamNEED FOR PROPHYLACTIC VACCINATION WITH COMBINED DIPHTHERIA-TE TANUS-PERTUSS IS (DTP) (DTAP) VACCINEMultip le neviDecreased visual acuityLump in vaginaRoutine Medical Exam 4 No Information OFFICE/OUTPA TIENT VISIT, EST [facility], [address] [facility],[address], [place], [place], [id number], [place] tel:[phone] [facility] [address] F/U LAB RESULTS (chief complaint) Nondependent tobacco use disorderDepre ssive disorder, not elsewhere classifiedLAB ORATORY EXAM NOS 2 No Information [facility], [address], [place], [place], [id number], [place] tel:[phone] [facility] No Information 2 Services [address] [place], [address]. tel:[phone] [facility], [address], [place], [place], [id number], [place] tel:[phone] [facility] No Information 2 Services En[address]. [address] [place], [address]. tel:[phone] [facility], [address], [place], [place], [id number], [place] tel:[phone] Converted Locations No Information 2 No Information [facility], [address], [place], [place], [address], [place] tel:[phone] [facility] Other general counseling and advice on contraceptive managementHip joint replacementBr east screening, unspecified 2 No Information [facility], [address], [place], [place], [address], [place] tel:[phone] [facility] Nondependent tobacco use disorderConju nctivitis, unspecifiedAc [place] pharyngitis 2 No Information [facility], [address], [place], [place], [address], [place] tel:[phone] Converted Locations No Information 2 No Information [facility], [address], [place], [place], [address], [place] tel:[phone] Converted Locations No Information 1 No Information [facility], [address], [place], [place], [address], [place] tel:[phone] [facility] Pain in joint involving pelvic region and thigh 1 No Information Saud Franklin [facility], [address], [place], [place], [id number], [place] tel:[phone] Converted Locations No Information 1 Z-Converted Provider. . Saud Franklin [facility], [address], [place], [place], [id number], tel:[phone] [facility] Anxiety disorder in conditions classified elsewhereNond ependent [...] Record Payers Payer name Insurance type Covered republican ID Cassidy peguero(s) [facility] [employer] CI [id number] Social History Type Description Quantity Date Captured [...] Evaluate and treat. ordered Referral Ordered: Referral: NURSE EPIDEMIOLOGIST. Evaluate and treat. Appointment date/timeframe: 01/11/2014 ordered Referral Ordered: Referral: Office Rental Clerk. Evaluate and treat. ordered History Of Present [...] referral Related to Routine Medical Exam referral document clerk, vaginal lump Relat ed to Routine Medical Exam referral optometry, no exam x 3 yrs, needs new eye glass rx Related to Routine Medical Exam Assessments Type Assessment Date No Information Patient Care Teams Name Effective Dates (start - stop) Status Members No Information
== END 2024-06-27 11:12 | disposition home or self-care (01) ==
PROVIDERS: PCP Internal Medicine; Visit Provider Orthopaedic Surgery
DX: S52.501A Unspecified fracture of the lower end of right radius, initial encounter for closed fracture (principal)
CPT/HCPCS: 25600; 99203

== ENCOUNTER → 2024-06-27 10:31 | Outpatient (BNV) | payer MEDICARE, SELFPAY | PROVIDERS: Visit Provider Radiology Diagnostic Radiology | DX: M25.531 Pain in right wrist (principal) | CPT/HCPCS: 73110 ==

== ENCOUNTER 2024-06-27 12:25 | Outpatient (REF) | payer MEDICARE, SELFPAY ==
--- NOTE | ~2024-06-27 | XR_ITS ---
CLINICAL HISTORY: M25.531 - Pain in right wrist 3 view right wrist Comparison: CR/SR - XR HAND WRIST RT - 06/21/24 10:58 EST Findings: Unchanged appearance of the nondisplaced radial styloid fracture. Mild degenerative change at the base of the thumb. No erosions. No radiopaque foreign body. IMPRESSION: 1. Relatively unchanged appearance of the nondisplaced radial styloid fracture. This document has been electronically signed by: Marianna Tran MD on 06/28/2024 06:25:38
--- OUTSIDE RECORDS SUMMARY | 2024-06-29 15:42 | XMS_ITS | Continuity of Care Document ---
Author Organization [facility] Address [address] [place] [address] 2,[address] [place] [address] Phone Care Team Providers Care Human Resources Compliance Manager Name Role Phone Unavailable Unavailable Unavailable Allergies, [...] EST URINE TEST OFFICE/OUTPATIENT VISIT, EST [facility] CULTURE SCREEN ONLY Advance Directives Directive Yes / No Effective Date File Name No Information Encounters Encounter Description Practice Location Reason(s) For Visit Diagnoses Date Provider Providers Copied on Encounter [facility], [address] [facility],[address], [place], [place], [id number], [place] tel:[phone] [facility] No Information 5 No Information OFFICE/OUTPA TIENT VISIT, EST [facility], [address] [facility],[address], [place], [place], [id number], [place] tel:[phone] [facility] sore throat (chief complaint) Acute pharyngitis 5 No Information [facility], [address] [facility] [address], [place], [place], [address], [place] tel:[phone] [facility] No Information 4 No Information PREV VISIT, EST, AGE 40-64 [facility], [address] [facility] [address], [place], [place], [id number], [place] tel:[phone] [facility] preventive exam (chief complaint) Routine Medical ExamNEED FOR PROPHYLACTIC VACCINATION WITH COMBINED DIPHTHERIA-TE TANUS-PERTUSS IS (DTP) (DTAP) VACCINEMultip le neviDecreased visual acuityLump in vaginaRoutine Medical Exam 4 No Information OFFICE/OUTPA TIENT VISIT, EST [facility], [address] [facility],[address], [place], [place], [address], [place] tel:[phone] [facility] [place] F/U LAB RESULTS (chief complaint) Nondependent tobacco use disorderDepre ssive disorder, not elsewhere classifiedLAB ORATORY EXAM NOS 2 No Information [facility], [address], [place], [place], [address], [place] tel:[phone] [facility] No Information 2 Services [address]. [address] [place], [address]. tel:[phone] [facility], [address], [place], [place], [address], [place] tel:[phone] [facility] No Information 2 Services [address]. [address] [place], [address]. tel:[phone] [facility], [address] [facility] [address], [place], [place], [address], [place] tel:[phone] Converted Locations No Information 2 No Information [facility], [address], [place], [place], [address], [place] tel:[phone] [facility] Other general counseling and advice on contraceptive managementHip joint replacementBr east screening, unspecified 2 No Information [facility], [address], [place], [place], [address], [place] tel:[phone] [facility] Nondependent tobacco use disorderConju nctivitis, unspecifiedAc [place] pharyngitis 2 No Information [facility], [address], [place], [place], [address], [place] tel:[phone] Converted Locations No Information 2 No Information [facility], [address], [place], [place], [address], [place] tel:[phone] Converted Locations No Information 1 No Information [facility], [address], [place], [place], [address], [place] tel:[phone] [facility] Pain in joint involving pelvic region and thigh 1 No Information [facility], [address], [place], [place], [address], [place] tel:[phone] Converted Locations No Information 1 Z-Converted Provider. . [facility], [address], [place], [place], [id number], tel:[phone] [facility] Anxiety disorder [...] type Covered constitution party ID Cassidy peguero(s) [facility] [employer] CI [id number] Social History Type Description Quantity Date Captured [...] Influenza vaccine. Due on due Referral Ordered: MAMMOGRAM SCREENING, BILATERAL Appointment date/timeframe: 12/04/2013 ordered Referral Ordered: COLONOSCOPY SCREENING ordered Referral Ordered: Referral: Dermatology. Evaluate and treat. ordered Referral Ordered: Referral: CNC MILLING MACHINIST. Evaluate and treat. Appointment date/timeframe: 01/11/2014 ordered Referral Ordered: Referral: Geospatial Image Analyst. Evaluate and treat. ordered History Of Present [...] referral Related to Routine Medical Exam referral vending service technician, vaginal lump Relat ed to Routine Medical Exam referral optometry, no exam x 3 yrs, needs new eye glass rx Related to Routine Medical Exam Assessments Type Assessment Date No Information Patient Care Teams Name Effective Dates (start - stop) Status Members No Information
== END 2024-06-27 12:26 | disposition home or self-care (01) ==
LOC: HO.HOSX 12:25
PROVIDERS: Visit Provider Orthopaedic Surgery
DX: S52.501A Unspecified fracture of the lower end of right radius, initial encounter for closed fracture (principal); M25.531 Pain in right wrist
CPT/HCPCS: 25600; 73110; 99202

== ENCOUNTER 2024-07-12 09:06 | Outpatient (REF) | payer MEDICARE, SELFPAY ==
--- NOTE | ~2024-07-12 | XR_ITS ---
EXAMINATION: XR WRIST NAVICULAR RIGHT HISTORY: M25.531 - Pain in right wrist COMPARISON: Comparison is made with the prior examinations dated 06/27/2024 and 06/21/2024. FINDINGS: Four views of the right wrist including a scaphoid view are submitted. The bones are osteopenic. The previously described possible nondisplaced fracture of the radial styloid is less well visualized. There is severe degenerative change involving the joint space between the scaphoid and trapezium. The soft tissues are unremarkable. XR/XR wrist RT w scaphoid IMPRESSION: The previously described possible fracture of the radial styloid is less well visualized. Electronically signed by: Lamberto Gomez MD 07/13/2024 07:47 AM JOSH
== END 2024-07-12 09:07 | disposition home or self-care (01) ==
LOC: HO.HOSX 09:06
PROVIDERS: Visit Provider Orthopaedic Surgery
DX: S52.514A Nondisplaced fracture of right radial styloid process, initial encounter for closed fracture (principal); W18.30XA Fall on same level, unspecified, initial encounter; Z91.81 History of falling; Y93.9 Activity, unspecified; Y92.9 Unspecified place or not applicable; Y99.9 Unspecified external cause status; M65.4 Radial styloid tenosynovitis [de Quervain]
CPT/HCPCS: 73110; 99212

== ENCOUNTER 2024-07-12 11:21 | Outpatient (AMB) | payer MEDICARE, SELFPAY ==
--- NOTE | 2024-07-12 11:44 | A.OFFVIS_ITS ---
Vital Signs 07/12/24 11:47 Height 5 ft 3 in Weight 181 lb BMI 32.1 Intake Visit Reasons: OV-RT Closed fracture of radial styloid-w/xray Intake Note: Kelly 59 yr old female presents today for her follow up visit for her right hand Distal radius fracture, approx DOI 06/14/24. At her last visit, patient was given a hand brace to be used as a cast. State she is doing well and is working on her ROM with good improvement. Allergies No Known Allergies Allergy (Verified 07/12/24 11:49) HPI HPI OV-RT Closed fracture of radial styloid-w/xray: Details: Kelly is a 59 year old right hand dominant woman who return for a right nondisplaced distal radius fracture, etiology unclear, DOI unclear, sometime between 05/28/24-06/14/24. She presents today saying she is doing well overall. She denies any pain normally, but says she has some when making a fist. She has been wearing her splint and limiting her finger ROM She says she is unsure how she injured herself, and when exactly it happened. She reports a Hx of falls and says she is unsteady on her feet at times. 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 Resolved ecchymosis over the volar aspect of her wrist Most tender over the 1st dorsal compartment tendons, as they pass over the snuffbox Positive Cathy test on the right Not particularly tender over the dorsal aspect of the distal radius No tenderness to firm palpation over the scaphoid tubercle No tenderness over the snuffbox No tenderness along the ulna No DRUJ tenderness No pain with proximal forearm squeeze Radiographs: 3 views of the right wrist were taken and viewed by me today in clinic. These were also compared to radiographs from 06/27/24. They show a non-displaced transverse metaphyseal distal radius fracture. There is also a bit of an irregularity at the scaphoid tubercle. Completely nontender in this area. Assessment & Plan Assessment & Plan (1) Distal radius fracture, right: Code(s): S52.501A - Unspecified fracture of the lower end of right radius, initial encounter for closed fracture Category: Medical (2) De Quervain's tenosynovitis, right: Code(s): M65.4 - Radial styloid tenosynovitis [de Quervain] Category: Medical Plan Assessment & Plan: 1. Right transverse metaphyseal distal radius fracture, nondisplaced Involving the radial styloid Etiology unclear, DOI unclear, date of injury presumed to be around 06/14/24 2. Right De Quervain's tenosynovitis Positive Cathy test I educated her about this condition I discussed operative and non-operative treatment options She can continue to wear her splint when out of the house with daytime activities. 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 Orders: Orders XR wrist RT w scaphoid Today M25.531 - Pain in right wrist Coding Level of Care Code Global (89427) Diagnoses Distal radius fracture, right S52.501A De Quervain's tenosynovitis, right M65.4
[2024-07-12 11:47] VITALS: BMI 32.1
--- OUTSIDE RECORDS SUMMARY | 2024-07-12 13:41 | XMS_ITS | Encounter Summary ---
Author Organization [facility] Address [address] [place] [address] Care Team Providers Care Tableau Lead Name Role Phone Renetta Agee MD Primary Care Provider [phone] Reason for Visit * Reason Onset Date Comments Employment Physical 07/10/2024 Encounter Details Date Type Department Care Team (Late st Contact Info) Description 07/10/2024 Telephone Adult Medicine [facility] [address] [place] [address] Renetta Agee MD [address] [place] [address] Employment Physical Social History Tobacco Use Types Packs/Day Years Used Date Smoking Tobacco: Every Day Smokeless Tobacco: Never Alcohol Use Standard Drinks/Week Comments Not Currently 0 (1 standard drink = 0.6 oz pur e alcohol) Sex and Gender Information Value Date Recorded Sex Assigned at Not on file Gender Identity Not on file Sexual Orientation Not on file documented as of this encounter Progress Notes * Mya Sands RN - 07/10/2024 3:37 PM EST Pt needs urgent PE to continue working , will book with pcp for 07/25 * Evan Bell - 07/10/2024 3:16 PM EST The patient is calling due to performing a physical for her employer. The patient stated that this physical will need to be within the next 3- 6 weeks, if possible. Please Advise. documented in this encounter Plan of Treatment Upcoming Encounters Date Type Department Care Team (Late st Contact Info) Description 07/25/2024 10:00 AM EST Office Visit Adult Medicine [facility] [address] [place] [address] Renetta Agee MD [address] [place] [address] documented as of this encounter Visit Diagnoses Not on filedocumented in this encounter Care Teams Tableau Lead Relationship Specialty Start Date End Date Renetta Agee MD [address] [facility] [place] [address] PCP - General 05/12/22 documented as of this encounter
--- OUTSIDE RECORDS SUMMARY | 2024-07-12 13:41 | XMS_ITS | Continuity of Care Document ---
Author Organization [facility] Address [address] [place] [address] 2,[address] [place] [address] Phone Care Team Providers Care Construction Controller Name Role Phone Unavailable Unavailable Unavailable Allergies, [...] EST URINE TEST OFFICE/OUTPATIENT VISIT, EST Lab [place] [facility] [place] CULTURE SCREEN ONLY Advance Directives Directive Yes / No Effective Date File Name No Information Encounters Encounter Description Practice Location Reason(s) For Visit Diagnoses Date Provider Providers Copied on Encounter [facility], [address] [facility],[address], [place], [place], [id number], [place] tel:[phone] [facility] No Information 5 No Information OFFICE/OUTPA TIENT VISIT, EST [facility], [address] [facility],[address], [place], [place], [address], [place] tel:[phone] [facility] sore throat (chief complaint) Acute pharyngitis 5 No Information [facility], [address], [place], [place], [address], [place] tel:[phone] [facility] No Information 4 No Information PREV VISIT, EST, AGE 40-64 [facility], [address], [place], [place], [address], [place] tel:[phone] [facility] preventive exam (chief complaint) Routine Medical ExamNEED FOR PROPHYLACTIC VACCINATION WITH COMBINED DIPHTHERIA-TE TANUS-PERTUSS IS (DTP) (DTAP) VACCINEMultip le neviDecreased visual acuityLump in vaginaRoutine Medical Exam 4 No Information OFFICE/OUTPA TIENT VISIT, EST [facility], [address] [facility],[address], [place], [place], [address], [place] tel:[phone] [facility] [place] F/U LAB RESULTS (chief complaint) Nondependent tobacco use disorderDepre ssive disorder, not elsewhere classifiedLAB ORATORY EXAM NOS 2 No Information [facility], [address], [place], [place], [address], [place] tel:[phone] [facility] No Information 2 Services [address]. [address] [place], [address]. tel:[phone] [facility], [address], [place], [place], [address], [place] tel:[phone] [facility] No Information 2 Services Enabling. [address] [place], [address]. tel:[phone] [facility], [address], [place], [place], [address], [place] tel:[phone] Converted Locations No Information 2 No Information [facility], [address], [place], [place], [address], [place] tel:[phone] [facility] Other general counseling and advice on contraceptive managementHip joint replacementBr east screening, unspecified 2 No Information [facility], [address], [place], [place], [address], [place] tel:[phone] [facility] Nondependent tobacco use disorderConju nctivitis, unspecifiedAc [place] pharyngitis 2 No Information [facility], [address], [place], [place], [address], [place] tel:[phone] Converted Locations No Information 2 No Information [facility], [address], [place], [place], [address], [place] tel:[phone] Converted Locations No Information 1 No Information [facility], [address], [place], [place], [address], [place] tel:[phone] [facility] Pain in joint involving pelvic region and thigh 1 No Information [facility]aud [facility], [address], [place], [place], [address], [place] tel:[phone] Converted Locations No Information 1 Z-Converted Provider. . Saud [facility], [address], [place], [place], [address], tel:[phone] [facility] Anxiety disorder in conditions classified elsewhereNond [...] Record Payers Payer name Insurance type Covered alliance party ID Cassidy peguero(s) [facility] [employer] CI [id number] Social History Type Description Quantity Date Captured [...] Evaluate and treat. ordered Referral Ordered: Referral: Product Delivery Specialist. Evaluate and treat. ordered Referral Ordered: COLONOSCOPY SCREENING ordered Referral Ordered: Referral: CARDIAC SPECIALIST. Evaluate and treat. Appointment date/timeframe: 01/11/2014 ordered Referral Ordered: MAMMOGRAM SCREENING, BILATERAL Appointment [...] referral Related to Routine Medical Exam referral dianeticist, vaginal lump Relat ed to Routine Medical Exam referral optometry, no exam x 3 yrs, needs new eye glass rx Related to Routine Medical Exam Assessments Type Assessment Date No Information Patient Care Teams Name Effective Dates (start - stop) Status Members No Information
--- OUTSIDE RECORDS SUMMARY | 2024-07-12 13:41 | XMS_ITS | Clinical Summary ---
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 01/06/2024 Active atomoxetine (STRATTERA) 25 mg capsule Take 1 capsule (25 mg total) by mouth 1 (one) time each day. Active bisacodyL (DULCOLAX) 5 mg EC tablet Take 2 tabs at 6pm as directed. 04/30/2023 Active buspirone HCl (BUSPAR ORAL) Take by mouth. Active citalopram hydrobromide (CELEXA ORAL) Take by mouth. Active lamoTRIgine (LaMICtal) 150 mg tablet Take 1 tablet (150 mg total) by mouth 1 (one) time each day. Active Active Problems Problem Noted Date Diagnosed Date Cigarette smoker motivated to quit 09/28/2023 Obesity (BMI 30-39.9) 09/28/2023 Hypercholesterolemia 05/28/2023 Anxiety and depression 02/19/2023 Attention deficit disorder (ADD) without hyperac tivity 02/19/2023 Encounters Date Type Department Care Team Description 07/10/2024 Telephone Adult Medicine [address] [phone] Renetta Agee MD Employment Physical 05/26/2024 Telephone Adult Medicine [address] [phone] Renetta Agee MD Fitting for DME from Last 3 Months Surgical History Surgery Date Site/Laterality Comments ORTHOPEDIC SURGERY PROCEDURE: HISTORICAL ORTHOPEDIC SURGERY Family History Medical History Relation Name Comments Stomach cancer Aunt Hypertension Father Melanoma Father Hypertension Mother Lung cancer Uncle 1 Lung cancer Uncle 2 Relation Name Status Comments Aunt Alive Father Mother Uncle 1 Other Uncle 2 Alive Social History Tobacco Use Types Packs/Day Years Used Date Smoking Tobacco: Every Day Smokeless Tobacco: Never Alcohol Use Standard Drinks/Week Comments Not Currently 0 (1 standard drink = 0.6 oz pur e alcohol) Sex and Gender Information Value Date Recorded Sex Assigned at Not on file Gender Identity Not on file Sexual Orientation Not on file Obstetrics History Last Filed Vital Signs Vital Sign Reading Time Taken Comments Blood Pressure 104/66 09/28/2023 3:11 PM EDT Pulse 75 09/28/2023 3:11 PM EDT Temperature - - Respiratory Rate - - Oxygen Saturation - - Inhaled Oxygen Concentration - - Weight 79.4 kg (175 lb) 09/28/2023 3:11 PM EDT Height 160 cm (5' 3 ) 09/28/2023 3:11 PM EDT Body Mass Index 31 09/28/2023 3:11 PM EDT Plan of Treatment Upcoming Encounters Date Type Department Care Team (Late st Contact Info) Description 07/25/2024 10:00 AM EST Office Visit Adult Medicine [address] [phone] Renetta Agee MD [address] [place] [id number] Health Maintenance Due Date Last Done Comments Breast Cancer Screening 1965 Pneumococcal Vaccine: Pediat rics (0 to 5 Years) and At-Risk Patients (6 to 64 Years) (1 of 2 - PCV) 1969 DTaP,Tdap,and Td Vaccines (1 - Tdap) 1982 Hepatitis A Vaccines (1 of 2 - Risk 2-dose series) 1982 Zoster Vaccines (1 of 2) 2013 Depression Screening 07/08/2023 HIV Screening 07/08/2023 Social Influencers of Health Screening 07/08/2023 COVID-19 Vaccine (1 - 2023-2 5 season) 2024 Influenza Vaccine (#1) 2024 Cervical Cancer Screening: HPV 02/26/2028 02/25/2023 Cholesterol Screening (Lipid Panel) 05/27/2028 05/27/2023 Colorectal Cancer Screening: Colonoscopy 05/14/2033 05/14/2023 RSV Immunization Patients 60 + Years Old (1 - 1-dose 75+ series) 2038 Hepatitis C Screening Completed 02/12/2023 HIB Vaccines Aged Out No longer eligi ble based on patient's age to complete this topic HPV Vaccines Aged Out No longer eligi ble based on patient's age to complete this topic Hepatitis B Vaccines Aged Out No long er eligible based on patient's age to complete this topic IPV Vaccines Aged Out No longer eligi ble based on patient's age to complete this topic MMR Vaccines Aged Out No longer eligi ble based on patient's age to complete this topic Meningococcal ACWY Vaccine Aged Out N o longer eligible based on patient's age to complete this topic RSV Immunization Patients Un ramana 20 months Aged Out No longer eligible b ased on patient's age to complete this topic Varicella Vaccines Aged Out No longer eligible based on patient's age to complete this topic Procedures Procedure Name Priority Date/Time Associated Diagnosis Comments LIPID PANEL Routine 05/27/2023 COLONOSCOPY Routine 05/14/2023 HPV Routine 02/25/2023 HEPATITIS C SCREENING Routine 02/12/2023 from Last 3 Months or Most Recently Relevant to Health Maintenance Results * (ABNORMAL) Lipid panel (05/27/2023) LDL/HDL Ratio 3 0 - 4 Triglycerides 87 0 - 150 mg/dL Cholesterol 285(A) 0 - 200 mg/dL HDL 97 40 mg/dL LDL Cholesterol 171(A) 0 - 100 mg/dL Blood Venous blood specimen / Unknown Historical Provider LAB BLOOD ORDERAB LES * Colonoscopy (05/14/2023) [facility] Colonoscopy no interpretation , abstracted Anatomical Region Laterality Modality Other Historical Provider MD MARIA GUADALUPE MORRISON E * Cervical Cancer Screening: HPV (02/25/2023) [facility] Cervical Cancer Screening: HPV negative, abstracted Historical Provider MD MARIA GUADALUPE MORRISON E * Hepatitis C Screening (02/12/2023) [facility] Hepatitis C Screening abstracted Historical Provider MD MARIA GUADALUPE Wright from Last 3 Months or Most Recently Relevant to Health Maintenance Care Teams Automatic Shirring Machine Operator Relationship Specialty Start Date End Date Renetta Agee MD [address] [place] [address] PCP - General 05/12/22
== END 2024-07-12 12:09 | disposition home or self-care (01) ==
PROVIDERS: PCP Internal Medicine; Visit Provider Orthopaedic Surgery
DX: S52.501A Unspecified fracture of the lower end of right radius, initial encounter for closed fracture (principal); M65.4 Radial styloid tenosynovitis [de Quervain]
CPT/HCPCS: 99024

== ENCOUNTER → 2024-07-12 11:36 | Outpatient (BNV) | payer MEDICARE, SELFPAY | PROVIDERS: Visit Provider Radiology Diagnostic Radiology | DX: M25.531 Pain in right wrist (principal) | CPT/HCPCS: 73110 ==

== ENCOUNTER 2024-08-01 10:07 | Outpatient (REF) | payer MEDICARE, SELFPAY ==
--- NOTE | ~2024-08-01 | XR_ITS ---
CLINICAL HISTORY: M25.531 - Pain in right wrist 3 view right wrist Comparison: DX - XR WRIST RT MIN 3V - 06/27/24 10:31 EST Findings: Sclerosis within the area of the radial styloid. Joint space narrowing and periarticular osteophyte formation at the radiocarpal, scaphotrapezial, and 1st carpometacarpal joints is present, indicating osteoarthritis. No radiopaque foreign body. IMPRESSION: Healing radial styloid fracture. This document has been electronically signed by: Wilma Winters MD on 08/02/2024 15:00:13
--- OUTSIDE RECORDS SUMMARY | 2024-08-01 11:04 | XMS_ITS | Encounter Summary ---
Author Organization [facility] Address [address] [place] [address] Care Team Providers Care Neonatologist Name Role Phone Renetta Agee MD Primary Care Provider [phone] Reason for Visit * Reason Onset Date Comments Results 07/27/2024 Encounter Details Date Type Department Care Team ([facility] Contact Info) Description 07/27/2024 Telephone Adult Medicine [address] [phone] Anita Virgen MA Results Social History Tobacco Use Types Packs/Day Years Used Date Smoking Tobacco: Every Day Smokeless Tobacco: Never Alcohol Use Standard Drinks/Week Comments Not Currently 0 (1 standard drink = 0.6 oz pur e alcohol) Comments Unknown Sex and Gender Information Value Date Recorded Sex Assigned at Female 07/28/2024 1:30 PM EST Legal Sex Female 8:22 PM EST Gender Identity Female 07/28/2024 1:30 PM EST Sexual Orientation Straight 07/28/2024 1: 30 PM EST documented as of this encounter Progress Notes * Mya Sands RN - 07/27/2024 10:55 AM EST Pt reassured and will do f/u labs as ordered * Anita Virgen MA - 07/27/2024 10:19 AM EST Swp - disclosed results and scheduled pt for 3 month f/u. Pt requested to speak with a nurse regarding labs documented in this encounter Plan of Treatment Upcoming Encounters Date Type Department Care Team (Late st Contact Info) Description 08/02/2024 9:45 AM EST [facility]ointment [facility] [address] [phone] 10/27/2024 8:30 AM EDT Office Visit Adult Medicine [facility] [address] [place] [address] Renetta Agee MD [address] [place], [place] documented as of this encounter Visit Diagnoses Not on filedocumented in this encounter Care Teams Neonatologist Relationship Specialty Start Date End Date Renetta Agee MD [address] [place], [place] PCP - General 05/12/22 documented as of this encounter
--- OUTSIDE RECORDS SUMMARY | 2024-08-01 11:04 | XMS_ITS | Encounter Summary ---
Author Organization [facility] Address [address] [place] [address] Care Team Providers Care Welcome Wagon Host/Hostess Name Role Phone Renetta Agee MD Primary Care Provider [phone] Reason for Visit * Reason Onset Date Comments Employment Physical 07/10/2024 Encounter Details Date Type Department Care Team ([facility] st Contact Info) Description 07/10/2024 Telephone Adult Medicine [facility] [address] [place] [address] Renetta Agee MD [address] [place], [place] [phone] Employment Physical Social History Tobacco Use Types [...] AM EST Appointment [facility] [address] [phone] 10/27/2024 8:30 AM EDT Office Visit Adult Medicine [facility] [address] [place] [address] Renetta Agee MD [address] [place], [place] documented as of this encounter Visit Diagnoses Not on filedocumented in this encounter Care Teams Welcome Wagon Host/Hostess Relationship Specialty Start Date End Date Renetta Agee MD [address] [place], [place] PCP - General 05/12/22 documented as of this encounter
--- OUTSIDE RECORDS SUMMARY | 2024-08-01 11:05 | XMS_ITS | Encounter Summary ---
Author Organization [facility] Address [address] [place] [address] Care Team Providers Care Street Light Repairer Name Role Phone Renetta Agee MD Primary Care Provider [phone] Reason for Referral * Consultation (Routine) - Pending Review Specialty Diagnoses / Procedures Referred By Nigel roberson Referred To Contact Ophthalmology Diagnoses Annual physical exam Renetta Agee MD [address] [place] [address] Phone: tel: fax: Referral ID Status Reason Start Date Expiration Date Visits Requested Visits Authorized [id number] Pending Review Specialty Services Required 07/25/2024 07/25/2025 1 1 * Imaging (Routine) - Pending Review Specialty Diagnoses / Procedures Referred By Nigel roberson Referred To Contact Radiology Diagnoses Annual physical exam Procedures MG Mammo Digital Screening bilat Renetta Agee MD [address] [place] [address] Phone: tel: fax: [address] [address] Phone: tel: Referral ID Status Reason Start Date Expiration Date V isits Requested Visits Authorized [id number] Pending Review 07/25/2024 07/25/2025 1 1 * Consultation (Urgent) - Pending Review Specialty Diagnoses / Procedures Referred By Nigel roberson Referred To Contact Psychiatry Diagnoses Anxiety and depression Renetta Agee MD [address] [place] [address] Phone: tel: fax: Referral ID Status Reason Start Date Expiration Date Visits Requested Visits Authorized [id number] Pending Review Specialty Services Required 07/25/2024 07/25/2025 1 1 Reason for Visit * Reason Comments Annual Exam Encounter Details Date Type Department Care Team ([facility] Contact Info) Description 07/25/2024 10:00 AM EST Office Visit Adult Medicine [facility] [address] [place] [address] Renetta Agee MD [address] [place] [address] Obesity (BMI 30-39.9) (Primary Dx); Hyperlipidemia, unspecified hyperlipidemia type; Anxiety and depression; Annual physical exam; Attention deficit disorder (ADD) without hyperactivity; Erythrocytosis Social History Tobacco Use Types Packs/Day Years [...] PM EST documented as of this encounter Last Filed Vital Signs Vital Sign Reading Time Taken Comments Blood Pressure 100/66 07/25/2024 10:04 AM EST Pulse 100 07/25/2024 10:04 AM EST Temperature 33.3 ??C (91.9 ??F) 07/25/2024 10:[address] Respiratory Rate 12 07/25/2024 10:04 AM EST Oxygen Saturation - - Inhaled Oxygen Concentration - - Weight 80.3 kg (177 lb) 07/25/2024 10:04 AM EST Height 160 cm (5' 3 ) 07/25/2024 10:04 AM EST Body Mass Index 31.35 07/25/2024 10:04 AM EST documented in this encounter Patient Instructions * Attachments The following attachments cannot be sent through Care Everywhere. * Anxiety Disorder ([place]) * Depression: Chronic Disease ([place]) * Well Visit: 50 to 65 Year Men ([place]) documented in this encounter Progress Notes * Renetta Agee MD - 07/25/2024 10:00 AM EST CHIEF COMPLAINT: Annual Exam IDENTIFIER: Kelly Calle is a 59 y.o. old female. HPI: Patient presents today for annual physical exam. Patient is here to follow-up on hyperlipidemia, anxiety and depression and ADD ROS: The remainder of review of systems is noncontributory. PAST MEDICAL HISTORY: Patient Active Problem List Diagnosis Date Noted Cigarette smoker motivated to quit 09/28/2023 Obesity (BMI 30-39.9) 09/28/2023 Hypercholesterolemia 05/28/2023 Anxiety and depression 02/19/2023 Attention deficit disorder (ADD) without hyperactivity 02/19/2023 SOCIAL HISTORY: Social History Tobacco Use Smoking status: Every Day Smokeless tobacco: Never Substance Use Topics Alcohol use: Not Currently FAMILY HISTORY: Family Status Relation Name Status Mother (Not Specified) Father (Not Specified) Uncle Other Uncle Alive Aunt Alive No partnership data on file Family History Problem Relation Name Age of Onset Hypertension Mother Hypertension Father Melanoma Father Lung cancer Uncle Lung cancer Uncle Stomach cancer Aunt ACTIVE MEDICATIONS: Outpatient Medications Marked as Taking for the 07/25/24 encounter (Office Visit) with Renetta Agee MD Medication Sig Dispense Refill atomoxetine (STRATTERA) 25 mg capsule Take 1 capsule (25 mg total) by mouth 1 (one) time each day. atorvastatin (LIPITOR) 10 mg tablet Take 1 tablet (10 mg total) by mouth 1 (one) time each day. bisacodyL (DULCOLAX) 5 mg EC tablet Take 2 tabs at 6pm as directed. buspirone HCl (BUSPAR ORAL) Take by mouth. citalopram hydrobromide (CELEXA ORAL) Take by mouth. lamoTRIgine (LaMICtal) 150 mg tablet Take 1 tablet (150 mg total) by mouth 1 (one) time each day. ALLERGIES: Patient has no known allergies. PHYSICAL EXAM: Blood pressure 100/66, pulse 100, temperature (!) 33.3 ??C (91.9 ??F), resp. rate 12, height 1.6 m (63 ), weight 80.3 kg (177 lb). Body mass index is 31.35 kg/m??. BMI is greater than 25.0 (above thenormal range) - see Plan APPEARANCE: Alert and in no acute distress EYES: PERRLA, conjunctiva and sclera normal EARS: External ears normal. Canals clear. TMs normal. NOSE/SINUS: Nares normal. Septum midline. Mucosa normal. No drainage or sinus tenderness MOUTH/THROAT: no erythema, lesions, or exudates NECK: Neck supple, no adenopathy, thyroid symmetric and of normal size HEART: RRR with normal S1 and S2, no murmurs, no gallops, no JVD appreciated CHEST: non-tender LUNG: clear to auscultation bilaterally BREAST (FEMALE): Symmetrical, normal consistency without masses LYMPH NODES: grossly normal ABDOMEN: Bowel sounds normoactive, no bruits and soft, non-tender, without organomegaly or palpablemasses BACK: no pain to palpation and good flexion and extension EXTREMITIES: Extremities warm and well perfused without clubbing, cyanosis, or edema NEURO: Awake, alert and oriented x 3 SKIN: Skin color, texture, turgor normal. No rashes or lesions. LABS/IMAGING: Lab Results Component Value Date WBC 6.0 07/25/2024 HGB 15.6 07/25/2024 HCT 47.5 (H) 07/25/2024 MCV 89.3 07/25/2024 Lab Results Component Value Date NA 136 07/25/2024 K 4.4 07/25/2024 CO2 28 07/25/2024 CL 103 07/25/2024 BUN 16 07/25/2024 ALKPHOS 90 07/25/2024 Lab Results Component Value Date CHOL 238 (H) 07/25/2024 LDL 171 (A) 05/27/2023 HDL 84 07/25/2024 TRIG 152 (H) 07/25/2024 Lab Results Component Value Date TSH 3.23 07/25/2024 IMPRESSION: 1. Obesity (BMI 30-39.9) 2. Hyperlipidemia, unspecified hyperlipidemia type 3. Anxiety and depression 4. Annual physical exam 5. Attention deficit disorder (ADD) without hyperactivity PLAN: 1. Health maintenance: The patient presented for an evaluation of general health. As part of this visit, we reviewed the following issues, which are considered an essential part of preventative health in this age group: - Breast cancer screening, which includes clinical exam and mammograms annually - mammogram ordered - Colon cancer screening (colonoscopy every 10 years/annual FOBT plus flexi sigmoidoscopy every 5 years/double-contrast BE every 5 years/Cologuard every 3 years/Annual FOBT) - up to date - Cervical cancer testing every 1-5 years - patient will follow-up with [employer] - Blood pressure annual screening performed - Cholesterol screening every five years - ordered - Nutritional and exercise counseling - patient advised to pursue at least 30 minutes of exercise most days of the week and limit portion sizes - Counseling of injury prevention including fire prevention, smoke alarms and seat belt usage - Screening for depression - care for depression is ongoing - Screening for domestic abuse - Screening for Type 2 diabetes mellitus in those with hypertension and/or hyperlipidemia - Prevention of and/or testing for infectious diseases, which may include Chlamydia, Gonorrhea, Syphilis, HIV, Hepatitis C and Tuberculosis - advice about STD prevention provided - One time hepatitis C screening in all adults - Education about skin cancer - Recommendations about immunizations - patient is due for Tdap immunization but defers this - Recommendation of an eye exam for glaucoma every 2-4 years in this age range - patient will self-refer - Preconception counseling - see Substance & Sexuality section of medical record - Osteoporosis screening for high-risk patients - Screening for substance abuse (including tobacco, alcohol, and recreational drugs) - see Substance & Sexuality section of medical record - Genetic cancer risk screening - NO INDICATION: Hereditary Cancer Syndrome Risk Assessment completed and evaluated. No indication found for genetic testing at this time. - In addition to reviewing these issues, I have reviewed the following sections of the chart: Past Medical History, Social History, and Social History - Did you have a dental visit in the last 12 months? Yes #Anxiety and depression #ADD Plan: Patient currently has the following mental health medications including atomoxetine, buspirone, Celexa and Lamictal Patient referred to psychiatry Patient will clarify medications and notify office #Hyperlipidemia Plan: Patient will continue working on lifestyle changes including diet and exercise Patient will continue Lipitor 10 mg daily Orders Placed This Encounter Procedures MG Mammo Digital Screening bilat Standing Status: Future Standing Expiration Date: 07/25/2025 Order Specific Question: In what REGION should this be scheduled? Answer: [facility] [[id number]] Order Specific Question: In what [place] LOCATION should this be scheduled? Answer: [facility] [address] [facility] [[id number]] CBC and differential Standing Status: Future Number of Occurrences: 1 Standing Expiration Date: 07/25/2025 Comprehensive metabolic panel Standing Status: Future Number of Occurrences: 1 Standing Expiration Date: 07/25/2025 Order Specific Question: Has the Patient Fasted? Answer: No Lipid panel with reflex to direct LDL Standing Status: Future Number of Occurrences: 1 Standing Expiration Date: 07/25/2025 Thyroid stimulating hormone with reflex to free t4 and free t3 Standing Status: Future Number of Occurrences: 1 Standing Expiration Date: 07/25/2025 Hemoglobin A1c Standing Status: Future Number of Occurrences: 1 Standing Expiration Date: 01/22/2025 Ambulatory referral to Psychiatry Standing Status: Future Standing Expiration Date: 07/25/2025 Referral Priority: Urgent Referral Type: Consultation Referral Reason: Specialty Services Required Requested Specialty: Psychiatry Number of Visits Requested: 1 Ambulatory referral to Ophthalmology Standing Status: Future Standing Expiration Date: 07/25/2025 Referral Priority: Routine Referral Type: Consultation Referral Reason: Specialty Services Required Requested Specialty: Ophthalmology Number of Visits Requested: 1 Renetta Agee MD on 07/26/2024 at 4:39 PM EST documented in this encounter Plan of Treatment Upcoming Encounters Date Type Department Care Team (Late st Contact Info) Description 08/02/2024 9:45 AM EST [facility]ointment [facility] at [address] [address] 10/27/2024 8:30 AM EDT Office Visit [facility] [place] [facility] [place] [address] [place] [address] Renetta Agee MD [address] [facility] [place] Scheduled Orders Name Type Priority Associated Diagnoses Orde r Schedule MG Mammo Digital Screening bilat Imaging Routine Annual physical exam Expected: 07/25/2024, Expires: 07/25/2025 CBC and differential Lab Routine Erythrocytosis 1 Occurrences starting 07/26/2024 until 07/26/2025 Scheduled Referrals Name Type Priority Associated Diagnoses Order Schedule Ambulatory referral to Psychiatry Outpatient Referral Routine Anxiety and depression 1 Occurrences starting 07/25/2024 until 07/25/2025 Ambulatory referral to Ophthalmology Outpatient Referral Routine Annual physical exam 1 Occurrences starting 07/25/2024 until 07/25/2025 documented as of this encounter Results * Hemoglobin A1c (07/25/2024 11:15 AM EST) [facility] Hemoglobin A1C 5.2 <6.5 % LAB CHEMISTRY METHOD 07/25/2024 1:56 PM EST [facility] Mean Bld Glu Estim. 103 mg/dL LAB CHEMISTRY METHOD 07/25/2024 1:56 PM EST [facility] Blood Venous blood specimen / Unknown Venipuncture / Unknown 07/25/2024 11:15 AM EST 07/25/2024 11:15 AM EST us Renetta Agee MD LAB BLOOD ORDERABLES Final Result [facility] [address] [place] [address], * Thyroid stimulating hormone with reflex to free t4 and free t3 (07/25/2024 11:15 AM EST) [facility] TSH 3.23 0.40 - 4.00 mcIU/mL LAB CHEMISTRY METHOD 07/25/2024 4:57 PM EST [facility] Blood Venous blood specimen / Unknown Venipuncture / Unknown 07/25/2024 11:15 AM EST 07/25/2024 11:15 AM EST Renetta Agee MD LAB BLOOD ORDERABLES Final Result [facility] [address] [place] [address], [place] [phone] * (ABNORMAL) Lipid panel with reflex to direct LDL (07/25/2024 11:15 AM EST) Cholesterol 238(H) 0 - 200 mg/dL LAB CHEMISTRY METHOD 07/25/2024 5:09 PM EST [facility] Triglycerides 152(H) 0 - 150 mg/dL LAB CHEMISTRY METHOD 07/25/2024 5:09 PM [facility] HDL 84 >=40 mg/dL LAB CHEMISTRY METHOD 07/25/2024 5:09 PM [facility] LDL Calculated 124(H) 0 - 100 mg/dL LAB CHEMISTRY METHOD 07/25/2024 5:09 PM [facility] VLDL Cholesterol Horace 30.4 mg/dL LAB CHEMISTRY METHOD 07/25/2024 5:09 PM [facility] Non HDL Chol. (LDL+VLDL) 154(H) <145 mg/dL LAB CHEMISTRY METHOD 07/25/2024 5:09 PM [facility] Chol/HDL Ratio 2.8 0.0 - 4.4 LAB CHEMISTRY METHOD 07/25/2024 5:09 PM [facility] Blood Venous blood specimen / Unknown Venipuncture / Unknown 07/25/2024 11:15 AM EST 07/25/2024 11:15 AM EST Renetta Agee MD LAB BLOOD ORDERABLES Final Result [facility] [address] [place] [address], [place] [phone] * (ABNORMAL) Comprehensive metabolic panel (07/25/2024 11:15 AM EST) Sodium 136 133 - 145 mmol/L LAB CHEMISTRY METHOD 07/25/2024 5:08 PM [facility] Potassium 4.4 3.5 - 5.5 mmol/L LAB CHEMISTRY METHOD 07/25/2024 5:08 PM [facility] Chloride 103 96 - 110 mmol/L LAB CHEMISTRY METHOD 07/25/2024 5:08 PM [facility] CO2 28 21 - 32 mmol/L LAB CHEMISTRY METHOD 07/25/2024 5:08 PM [facility] Anion Gap 5 3 - 11 LAB CHEMISTRY METHOD 07/25/2024 5:08 PM [facility] Glucose 101(H) 70 - 100 mg/dL LAB CHEMISTRY METHOD 07/25/2024 5:08 PM [facility] BUN 16 5 - 25 mg/dL LAB CHEMISTRY METHOD 07/25/2024 5:08 PM [facility] Creatinine 0.98 0.50 - 1.10 mg/dL LAB CHEMISTRY METHOD 07/25/2024 5:08 PM [facility] eGFR 66 >=60 mL/min/1. 73m2 LAB CHEMISTRY METHOD 07/25/2024 5:08 PM [facility] Comment:Calculation based on the??Chronic Kidney Disease Epidemiology Collaboration (CKD-EPI) equation refit??without adjustment for race. BUN/Creatinine Ratio 16.3 LAB CHEMISTRY METHOD 07/25/2024 5:08 PM [facility] Calcium 9.7 8.5 - 10.5 mg/dL LAB CHEMISTRY METHOD 07/25/2024 5:08 PM [facility] AST (SGOT) 22 10 - 42 unit/L LAB CHEMISTRY METHOD 07/25/2024 5:08 PM [facility] ALT (SGPT) 17 10 - 60 unit/L LAB CHEMISTRY METHOD 07/25/2024 5:08 PM [facility] Alkaline Phosphatase 90 42 - 121 unit/L LAB CHEMISTRY METHOD 07/25/2024 5:08 PM [facility] Total Protein 6.7 6.0 - 8.0 g/dL LAB CHEMISTRY METHOD 07/25/2024 5:08 PM EST [facility] Albumin 3.9 3.2 - 5.0 g/dL LAB CHEMISTRY METHOD 07/25/2024 5:08 PM [facility] Total Bilirubin 0.3 0.0 - 1.4 mg/dL LAB CHEMISTRY METHOD 07/25/2024 5:08 PM [facility] Blood Venous blood specimen / Unknown Venipuncture / Unknown 07/25/2024 11:15 AM EST 07/25/2024 11:15 AM EST us Renetta Agee MD LAB BLOOD ORDERABLES Final Result [facility] [address] [place] [address], documented in this encounter Visit Diagnoses Diagnosis Obesity (BMI 30-39.9)- Primary Hyperlipidemia, unspecified hyperlipidemia type Anxiety and depression Annual physical exam Routine general medical examination at a health care facility Attention deficit disorder (ADD) without hyperactivity Erythrocytosis Polycythemia, secondary documented in this encounter Care Teams Street Light Repairer Relationship Specialty Start Date End Date Renetta Agee MD [address] [place] [address] PCP - General 05/12/22 documented as of this encounter
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
--- OUTSIDE RECORDS SUMMARY | 2024-08-01 11:05 | XMS_ITS | Clinical Summary ---
Author Organization [facility] [address] [facility] Address [address] [place], [place] Phone Care Team Providers Care It Consulting Director Name Role Phone Renetta Agee MD Primary Care Provider +1- [phone] Allergies No known active allergies Medications atorvastatin (LIPITOR) 10 mg tablet Take 1 tablet (10 mg total) by mouth 1 (one) time each day. 4 Active atomoxetine (STRATTERA) 25 mg capsule Take 1 capsule (25 mg total) by mouth 1 (one) time each day. Active bisacodyL (DULCOLAX) 5 mg EC tablet Take 2 tabs at 6pm as directed. 3 Active buspirone HCl (BUSPAR ORAL) Take by [...] Encounters Date Type Department Care Team Description 07/27/2024 Telephone Adult Medicine [facility] [address] [place], [place] [phone] Anita Virgen [place] Results 07/25/2024 10:00 AM EST Office Visit Adult [address] [phone] Renetta Agee MD Obesity (BMI 30-39.9) (Primary Dx); Hyperlipidemia, unspecified hyperlipidemia type; Anxiety and depression; Annual physical exam; Attention deficit disorder (ADD) without hyperactivity; Erythrocytosis 07/25/2024 Telephone Adult [address] [phone] Renetta Agee MD 07/10/[address] [phone] Renetta Agee MD Employment Physical 05/26/[address] [phone] Renetta Agee MD Fitting for DME from [...] Orientation Straight 07/28/2024 1: 30 PM EST Obstetrics History Last Filed Vital Signs Vital [...] Mass Index 31.35 07/25/2024 10:04 AM EST Plan of Treatment Upcoming Encounters Date Type Department Care Team (Late st Contact Info) Description 08/02/2024 9:45 AM EST [facility]ointment [facility] at [address] [phone] 10/27/2024 8:30 AM EDT Office Visit Adult Medicine [facility] [address] [place] [address] Renetta Agee MD [address] [place] [address] Health Maintenance Due Date Last Done Comments Breast Cancer Screening 1965 Medicare Annual Wellness Visit 07/08/2023 Influenza Vaccine (#1) 2024 Postp oned from 02/13/2024 (Patient Refused) COVID-19 Vaccine (1 - 2023-2 5 season) 2025 Postponed from 02/12 (Patient Refused) DTaP,Tdap,and Td Vaccines (1 - Tdap) 06/14/2025 Postponed from 06/24 (Patient Refused) HIV Screening 06/14/2025 Postponed from 07/08/2023 (Patient Refused) Hepatitis A Vaccines (1 of 2 - Risk 2-dose series) 06/14/2025 Postponed from 04/1983 (Patient Refused) Pneumococcal Vaccine: 50+ Years (1 of 2 - PCV) 06/14/2025 Postponed from 06/14 (Patient Refused) Pneumococcal Vaccine: Pediatrics (0 to 5 Years) and At-Risk Patients (6 to 64 Years) (1 of 2 - PCV) 06/14/2025 Postponed from 04/1983 (Patient Refused) Zoster Vaccines (1 of 2) 06/14/2025 Pos tponed from 2013 (Patient Refused) Depression Screening 07/25/2025 07/25/2024 Social Influencers of Health Screening 07/25/2025 07/25/2024 Cervical Cancer Screening: HPV 02/26/2028 02/25/2023 Cholesterol Screening (Lipid Panel) 07/25/2029 07/25/2024, 05/27/2023 Colorectal Cancer Screening: Colonoscopy 05/14/2033 05/14/2023 [...] patient's age to complete this topic Meningococcal B Vacine Aged Out No lo nger eligible based on patient's age to complete this topic RSV Immunization Patients Under 20 months Aged Out No longer eligible b ased on patient's age to complete this topic Varicella Vaccines Aged Out No longer eligible based on patient's age to complete this topic Procedures Procedure Name Priority Date/Time Associated Diagnosis Comments CBC WITH AUTO DIFFERENTIAL Routine 07/25/2024 11:15 AM EST Annual physical exam CBC AND DIFFERENTIAL Routine 07/25/2024 11:15 AM EST Annual physical exam COMPREHENSIVE METABOLIC PANEL Routine 07/25/2024 11:15 AM EST Annual physical exam LIPID PANEL WITH REFLEX TO DIRECT LDL Routine 07/25/2024 11:15 AM EST Annual physical exam THYROID STIMULATING HORMONE WITH REFLEX TO FREE T4 AND FREE T3 Routine 07/25/2024 11:15 AM EST Annual physical exam HEMOGLOBIN A1C Routine 07/25/2024 11:15 AM EST Annual physical exam HM COLONOSCOPY Routine 05/14/2023 HPV Routine 02/25/2023 HEPATITIS C SCREENING Routine 02/12/2023 from Last 3 Months or Most Recently Relevant to Health Maintenance Results * Thyroid stimulating hormone with reflex to free t4 and free t3 (07/25/2024 11:15 AM EST) TSH 3.23 0.40 - 4.00 mcIU/mL LAB CHEMISTRY METHOD 07/25/2024 4:57 PM [facility] Blood Venous blood specimen / Unknown Venipuncture / Unknown 07/25/2024 11:15 AM EST 07/25/2024 11:15 AM EST us Renetta Agee MD LAB BLOOD ORDERABLES Final Result [facility] [address] [place] [address], [place] [phone] * (ABNORMAL) Lipid panel with reflex to direct LDL (07/25/2024 11:15 AM EST) Cholesterol 238(H) 0 - 200 mg/dL LAB CHEMISTRY METHOD 07/25/2024 5:09 PM [facility] Triglycerides 152(H) 0 - 150 mg/dL LAB CHEMISTRY METHOD 07/25/2024 5:09 PM [facility] HDL 84 >=40 mg/dL LAB CHEMISTRY METHOD 07/25/2024 5:09 PM [facility] LDL Calculated 124(H) 0 - 100 mg/dL LAB CHEMISTRY METHOD 07/25/2024 5:09 PM [facility] VLDL Cholesterol Horace 30.4 mg/dL LAB CHEMISTRY METHOD 07/25/2024 5:09 PM [facility] Non HDL Chol. (LDL+VLDL) 154(H) <145 mg/dL LAB CHEMISTRY METHOD 07/25/2024 5:09 PM [facility] Chol/HDL Ratio 2.8 0.0 - 4.4 LAB CHEMISTRY METHOD 07/25/2024 5:09 PM [facility] Blood Venous blood specimen / Unknown Venipuncture / Unknown 07/25/2024 11:15 AM EST 07/25/2024 11:15 AM EST us Renetta Agee MD LAB BLOOD ORDERABLES Final Result [facility] [address] [place] [address], [place] [phone] * (ABNORMAL) CBC auto differential (07/25/2024 11:15 AM EST) WBC 6.0 4.8 - 10.8 K/mcL LAB HEMETOLOGY METHOD 07/25/2024 12:20 PM [facility] RBC 5.30(H) 3.80 - 4.80 M/mcL LAB HEMETOLOGY METHOD 07/25/2024 12:20 PM [facility] Hemoglobin 15.6 11.5 - 16.0 g/dL LAB HEMETOLOGY METHOD 07/25/2024 12:20 PM [facility] Hematocrit 47.5(H) 35.0 - 47.0 % LAB HEMETOLOGY METHOD 07/25/2024 12:20 PM [facility] MCV 89.3 79.0 - 98.0 FL LAB HEMETOLOGY METHOD 07/25/2024 12:20 PM [facility] MCH 29.3 27.0 - 32.0 pcg LAB HEMETOLOGY METHOD 07/25/2024 12:20 PM [facility] MCHC 32.8 32.0 - 37.0 g/dL LAB HEMETOLOGY METHOD 07/25/2024 12:20 PM [facility] RDW 11.9 11.0 - 15.0 % LAB HEMETOLOGY METHOD 07/25/2024 12:20 PM [facility] Platelets 302 130 - 400 K/mcL LAB HEMETOLOGY METHOD 07/25/2024 12:20 PM [facility] MPV 10.7 7.0 - 11.0 FL LAB HEMETOLOGY METHOD 07/25/2024 12:20 PM [facility] NRBC 0.0 <1.0 % LAB HEMETOLOGY METHOD 07/25/2024 12:20 PM [facility] NRBC Absolute 0.00 <0.10 K/mcL LAB HEMETOLOGY METHOD 07/25/2024 12:20 PM [facility] Neutrophils Relative 53.5 % LAB HEMETOLOGY METHOD 07/25/2024 12:20 PM [facility] Lymphocytes Relative 35.9 % LAB HEMETOLOGY METHOD 07/25/2024 12:20 PM [facility] Monocytes Relative 7.9 % LAB HEMETOLOGY METHOD 07/25/2024 12:20 PM [facility] Eosinophils Relative 1.5 % LAB HEMETOLOGY METHOD 07/25/2024 12:20 PM [facility] Basophils Relative 1.0 % LAB HEMETOLOGY METHOD 07/25/2024 12:20 PM [facility] Immature Granulocytes Relative 0.2 % LAB HEMETOLOGY METHOD 07/25/2024 12:20 PM [facility] Neutrophils Absolute 3.23 1.50 - 7.00 K/mcL LAB HEMETOLOGY METHOD 07/25/2024 12:20 PM [facility] Lymphocytes Absolute 2.17 1.00 - 5.00 K/mcL LAB HEMETOLOGY METHOD 07/25/2024 12:20 PM [facility] Monocytes Absolute 0.48 0.20 - 1.00 K/mcL LAB HEMETOLOGY METHOD 07/25/2024 12:20 PM [facility] Eosinophils Absolute 0.09 0.00 - 0.50 K/[facility] LAB HEMETOLOGY METHOD 07/25/2024 12:20 PM EST [facility] Basophils Absolute 0.06 0.00 - 0.20 K/[facility] LAB HEMETOLOGY METHOD 07/25/2024 12:20 PM EST [facility] Immature Granulocytes Absolute 0.01 0.00 - 0.03 K/[facility] LAB HEMETOLOGY METHOD 07/25/2024 12:20 PM EST [facility] Blood Venous blood specimen / Unknown Venipuncture / Unknown 07/25/2024 11:15 AM EST 07/25/2024 11:15 AM EST Renetta Agee MD LAB BLOOD ORDERABLES Final Result Performing Organization Address City/[facility]/ZIP Co de Phone Number [facility] [address] [place] [address], [place] [phone] * Hemoglobin A1c (07/25/2024 11:15 AM EST) Hemoglobin A1C 5.2 <6.5 % LAB CHEMISTRY METHOD 07/25/2024 1:56 PM EST [facility] Mean Bld Glu Estim. 103 mg/dL LAB CHEMISTRY METHOD 07/25/2024 1:56 PM EST [facility] Blood Venous blood specimen / Unknown Venipuncture / Unknown 07/25/2024 11:15 AM EST 07/25/2024 11:15 AM EST Renetta Agee MD LAB BLOOD ORDERABLES Final Result [facility] [address] [place] [address], [place] [phone] * (ABNORMAL) Comprehensive metabolic panel (07/25/2024 11:15 AM EST) Sodium 136 133 - 145 mmol/L LAB CHEMISTRY METHOD 07/25/2024 5:08 PM [facility] Potassium 4.4 3.5 - 5.5 mmol/L LAB CHEMISTRY METHOD 07/25/2024 5:08 PM [facility] Chloride 103 96 - 110 mmol/L LAB CHEMISTRY METHOD 07/25/2024 5:08 PM [facility] CO2 28 21 - 32 mmol/L LAB CHEMISTRY METHOD 07/25/2024 5:08 PM [facility] Anion Gap 5 3 - 11 LAB CHEMISTRY METHOD 07/25/2024 5:08 PM [facility] Glucose 101(H) 70 - 100 mg/dL LAB CHEMISTRY METHOD 07/25/2024 5:08 PM [facility] BUN 16 5 - 25 mg/dL LAB CHEMISTRY METHOD 07/25/2024 5:08 PM [facility] Creatinine 0.98 0.50 - 1.10 mg/dL LAB CHEMISTRY METHOD 07/25/2024 5:08 PM [facility] eGFR 66 >=60 mL/min/1. 73m2 LAB CHEMISTRY METHOD 07/25/2024 5:08 PM [facility] Comment:Calculation based on the??Chronic Kidney Disease Epidemiology Collaboration (CKD-EPI) equation refit??without adjustment for race. BUN/Creatinine Ratio 16.3 LAB CHEMISTRY METHOD 07/25/2024 5:08 PM [facility] Calcium 9.7 8.5 - 10.5 mg/dL LAB CHEMISTRY METHOD 07/25/2024 5:08 PM [facility] AST (SGOT) 22 10 - 42 unit/L LAB CHEMISTRY METHOD 07/25/2024 5:08 PM [facility] ALT (SGPT) 17 10 - 60 unit/L LAB CHEMISTRY METHOD 07/25/2024 5:08 PM [facility] Alkaline Phosphatase 90 42 - 121 unit/L LAB CHEMISTRY METHOD 07/25/2024 5:08 PM EST [facility] Total Protein 6.7 6.0 - 8.0 g/dL LAB CHEMISTRY METHOD 07/25/2024 5:08 PM EST [facility] Albumin 3.9 3.2 - 5.0 g/dL LAB CHEMISTRY METHOD 07/25/2024 5:08 PM [facility] Total Bilirubin 0.3 0.0 - 1.4 mg/dL LAB CHEMISTRY METHOD 07/25/2024 5:08 PM EST [facility] Blood Venous blood specimen / Unknown Venipuncture / Unknown 07/25/2024 11:15 AM EST 07/25/2024 11:15 AM EST Renetta Agee MD LAB BLOOD ORDERABLES Final Result [facility] [address] [place] [address], * Colonoscopy (05/14/2023) Pathologist [facility] Colonoscopy no interpretation , abstracted Anatomical Region Laterality Modality Other Historical Provider HEALTH MAINTENANCE Final Result * Cervical Cancer Screening: HPV (02/25/2023) [facility] Cervical Cancer Screening: HPV negative, abstracted [facility] Provider HEALTH MAINTENANCE Final Result * Hepatitis C Screening (02/12/2023) [facility] Hepatitis C Screening abstracted Historical Provider HEALTH MAINTENANCE Final Result from Last 3 Months or Most Recently Relevant to Health Maintenance Insurance MEDICAID - [place] [employer] MEDICARE Care Teams It Consulting Director Relationship Specialty Start Date End Date Renetta Agee MD [address] [place] [address] PCP - General 05/12/22
== END 2024-08-01 10:08 | disposition home or self-care (01) ==
LOC: HO.HOSX 10:07
PROVIDERS: Visit Provider Orthopaedic Surgery
DX: M25.531 Pain in right wrist (principal)
CPT/HCPCS: 73110; 99212

== ENCOUNTER 2024-08-01 15:34 | Outpatient (AMB) | payer MEDICARE, SELFPAY ==
--- NOTE | 2024-08-01 15:40 | A.OFFVIS_ITS ---
Intake Visit Reasons: OV-RT Closed fracture of radial styloid-follow up Intake Note: Kelly 59 yr old female presents today for a follow up visit s/p right hand d-.istal radius fracture, approx DOI 06/14/24. At her last visit patient was advised to continue to wear her splint when out of the house with daytime a ctivities and to discontinue her splint when at home. Today, patient reports her employer wont allow her to return to work with light duty. She reports numbness on her right ring and small fingers. Patient taking Ibuprofen PRN with relief. Allergies No Known Allergies Allergy (Verified 08/01/24 15:46) HPI HPI OV-RT Closed fracture of radial styloid-follow up: Details: Kelly is a 59 year old right hand dominant woman who return for a right nondisplaced distal radius fracture, etiology unclear, DOI unclear, sometime between 05/28/24-06/14/24. She presents today saying she is doing well overall. She denies any pain normally, but says she has some when making a fist. She says she is unsure how she injured herself, and when exactly it happened. She reports a Hx of falls and says she is unsteady on her feet at times. 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 She returned to light duty on 07/17/24 and says her employer did not allow her to return to work. 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 These were also compared to radiographs from 07/12/24. They show a non-displaced transverse metaphyseal distal radius fracture. There is also a bit of an irregularity at the scaphoid tubercle. Completely nontender in this area. Assessment & Plan Assessment & Plan (1) Distal radius fracture, right: Code(s): S52.501A - Unspecified fracture of the lower end of right radius, initial encounter for closed fracture Category: Medical (2) De Quervain's tenosynovitis, right: Code(s): M65.4 - Radial styloid tenosynovitis [de Quervain] Category: Medical Plan Assessment & Plan: 1. Right transverse metaphyseal distal radius fracture, nondisplaced Involving the radial styloid Etiology unclear, DOI unclear, date of injury presumed to be around 06/14/24 2. 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 She will follow up prn Scribed for Shagufta Melo MD by Cam Stinson, medical insurance clerk, on 08/01/24 at 3:55 PM, EST. Orders: Orders XR wrist RT min 3V 08/01/24 M25.531 - Pain in right wrist Coding Level of Care Code Global (96917) Diagnoses Distal radius fracture, right S52.501A De Quervain's tenosynovitis, right M65.4
--- OUTSIDE RECORDS SUMMARY | 2024-08-01 16:26 | XMS_ITS | Encounter Summary ---
Author Organization [facility] Address [address] [place] [address] Care Team Providers Care Sample Sewer Name Role Phone Renetta Agee MD Primary Care Provider [phone] Reason for Visit * Reason Onset Date Comments Employment Physical 07/10/2024 Encounter Details Date Type Department Care Team ([facility] st Contact Info) Description 07/10/2024 Telephone Adult [place] [facility] [address] [place] [address] Renetta Agee MD [address] [place], [place] [phone] Employment Physical Social History Tobacco Use Types [...] AM EST [facility]ment [facility] at [address] [phone] 10/27/2024 8:30 AM EDT Office Visit [place] [facility] [address] [place] [address] Renetta Agee MD [address] [place], [place] documented as of this encounter Visit Diagnoses Not on filedocumented in this encounter Care Teams Sample Sewer Relationship Specialty Start Date End Date Renetta Agee MD [address] [place], [place] PCP - General 05/12/22 documented as of this encounter
--- OUTSIDE RECORDS SUMMARY | 2024-08-01 16:26 | XMS_ITS | Encounter Summary ---
Author Organization [facility] Address [address] [place] [address] Care Team Providers Care Food Sales Clerk Name Role Phone Renetta Agee MD Primary Care Provider [phone] Reason for Visit * Reason Onset Date Comments Results 07/27/2024 Encounter Details Date Type Department Care Team ([facility] Contact Info) Description 07/27/2024 Telephone Adult Medicine [address] [address] Anita Virgen [place] Results Social History Tobacco [...] AM EST [facility]ment [facility] at [address] [phone] 10/27/2024 8:30 AM EDT Office Visit Adult Medicine [facility] [address] [place] [address] Renetta Agee MD [address] [place], [place] documented as of this encounter Visit Diagnoses Not on filedocumented in this encounter Care Teams Food Sales Clerk Relationship Specialty Start Date End Date Renetta Agee MD [address] [place], [place] PCP - General 05/12/22 documented as of this encounter
--- OUTSIDE RECORDS SUMMARY | 2024-08-01 16:26 | XMS_ITS | Continuity of Care Document ---
Author Organization [facility] Address [address] [place] [address] 2,[address] [place] [address] Phone Care Team Providers Care Lay Out Drafter Name Role Phone Unavailable Unavailable Unavailable Allergies, [...] EST URINE TEST OFFICE/OUTPATIENT VISIT, EST [facility] CULTURE SCREEN ONLY Advance Directives Directive Yes / No Effective Date File Name No Information Encounters Encounter Description Practice Location Reason(s) For Visit Diagnoses Date Provider Providers Copied on Encounter [facility], [address] [facility] [address], [place], [place], [id number], [place] tel:[phone] [facility] No Information 5 No Information OFFICE/OUTPA TIENT VISIT, EST [facility], [address] [facility] [address], [place], [place], [id number], [place] tel:[phone] [facility] sore throat (chief complaint) Acute pharyngitis 5 No Information [facility], [address] [facility] [address], [place], [place], [id number], [place] tel:[phone] [facility] No Information 4 No Information PREV VISIT, EST, AGE 40-64 [facility], [address] [facility] [address], [place], [place], [id number], [place] tel:[phone] [facility] preventive exam (chief complaint) Routine Medical ExamNEED FOR PROPHYLACTIC VACCINATION WITH COMBINED DIPHTHERIA-TE TANUS-PERTUSS IS (DTP) (DTAP) VACCINEMultip le neviDecreased visual acuityLump in vaginaRoutine Medical Exam 4 No Information OFFICE/OUTPA TIENT VISIT, EST [facility], [address] [facility] [address], [place], [place], [id number], [place] tel:[phone] [facility] Miles F/U LAB RESULTS (chief complaint) Nondependent tobacco use disorderDepre ssive disorder, not elsewhere classifiedLAB ORATORY EXAM NOS 2 No Information [facility], [address], [place], [place], [id number], [place] tel:[phone] [facility] No Information 2 Services [address]. [address] [place], [address]. tel:[phone] [facility], [address], [place], [place], [id number], [place] tel:[phone] [facility] No Information [address] Services [address]. [address] [place], [address]. tel:[phone] [facility], [address] [facility] [address], [place], [place], [id number], [place] tel:[phone] Converted Locations No Information 2 No Information [facility], [address], [place], [place], [id number], [place] tel:[phone] [facility] Other general counseling and advice on contraceptive managementHip joint replacementBr east screening, unspecified 2 No Information [facility], [address], [place], [place], [id number], [place] tel:[phone] [facility] Nondependent tobacco use disorderConju nctivitis, unspecifiedAc orutsararmiut pharyngitis 2 No Information [facility], [address], [place], [place], [id number], [place] tel:[phone] Converted Locations No Information 2 No Information [facility], [address], [place], [place], [id number], [place] tel:[phone] Converted Locations No Information 1 No Information [facility], [address], [place], [place], [id number], [place] tel:[phone] [facility] Pain in joint involving pelvic region and thigh 1 No Information [facility], [address], [place], [place], [id number], [place] tel:[phone] Converted Locations No Information 1 Z-Converted Provider. . [facility], [address], [place], [place], [id number], tel:[phone] [facility] Anxiety disorder in conditions classified elsewhereNond ependent [...] Insurance type Covered republican ID Cassidy peguero(s) [facility] [employer] CI [id number] Social History Type Description Quantity Date Captured [...] Evaluate and treat. ordered Referral Ordered: Referral: MAGNETIC TESTING TECHNICIAN. Evaluate and treat. Appointment date/timeframe: 01/11/2014 ordered Referral Ordered: Referral: Wire Stitcher Machine. Evaluate and treat. ordered History Of Present [...] referral Related to Routine Medical Exam referral director electronics, vaginal lump Relat ed to Routine Medical Exam referral optometry, no exam x 3 yrs, needs new eye glass rx Related to Routine Medical Exam Assessments Type Assessment Date No Information Patient Care Teams Name Effective Dates (start - stop) Status Members No Information
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
--- OUTSIDE RECORDS SUMMARY | 2024-08-01 16:26 | XMS_ITS | Clinical Summary ---
Author Organization [facility] Address [address] [place], [place] Phone Care Team Providers Care Chocolate Molder Name Role Phone Renetta Agee MD Primary Care Provider +1- [phone] Allergies No known active allergies Medications atorvastatin [...] Care Team Description 07/27/[address] [facility] [address] [place], [place] [phone] Anita Virgen MA Results 07/25/2024 10:00 AM EST Office Visit Adult [address] [phone] Renetta Agee MD Obesity (BMI 30-39.9) (Primary Dx); Hyperlipidemia, unspecified hyperlipidemia type; Anxiety and depression; Annual physical exam; Attention deficit disorder (ADD) without hyperactivity; Erythrocytosis 07/25/2024 Telephone Adult [address] [phone] Renetta Agee MD 07/10/[address] [phone] Renetta Agee MD Employment Physical 05/26/[address] [phone] Renetta Agee MD Fitting for DME from [...] EST Appointment [facility] at [address] [phone] 10/27/2024 8:30 AM EDT Office Visit Adult Medicine [facility] [address] [place] [address] Renetta Agee MD [address] [place] [address] Health Maintenance Due Date Last Done Comments [...] mcIU/mL LAB CHEMISTRY METHOD 07/25/2024 4:57 PM [facility] Blood Venous blood specimen / Unknown Venipuncture / Unknown 07/25/2024 11:15 AM EST 07/25/2024 11:15 AM EST us Renetta Agee MD LAB BLOOD ORDERABLES Final Result [facility] [address] [place] [address], [place] [phone] * (ABNORMAL) Lipid panel with reflex to direct LDL (07/25/2024 11:15 AM EST) Cholesterol 238(H) 0 - 200 mg/dL LAB CHEMISTRY METHOD 07/25/2024 5:09 PM [facility] Triglycerides 152(H) 0 - 150 mg/dL LAB CHEMISTRY METHOD 07/25/2024 5:09 PM [facility] HDL 84 >=40 mg/dL LAB CHEMISTRY METHOD 07/25/2024 5:09 PM [facility] LDL Calculated 124(H) 0 - 100 mg/dL LAB CHEMISTRY METHOD 07/25/2024 5:09 PM [facility] VLDL Cholesterol Horace 30.4 mg/dL LAB CHEMISTRY METHOD 07/25/2024 5:09 PM [facility] Non HDL Chol. (LDL+VLDL) 154(H) <145 mg/dL LAB CHEMISTRY METHOD 07/25/2024 5:09 PM [facility] Chol/HDL Ratio 2.8 0.0 - 4.4 LAB CHEMISTRY METHOD 07/25/2024 5:09 PM [facility] Blood Venous blood specimen / Unknown Venipuncture / Unknown 07/25/2024 11:15 AM EST 07/25/2024 11:15 AM EST us Renetta Agee MD LAB BLOOD ORDERABLES Final Result [facility] [address] [place] [address], [place] [phone] * (ABNORMAL) CBC auto differential (07/25/2024 11:15 AM EST) WBC 6.0 4.8 - 10.8 K/mcL LAB HEMETOLOGY METHOD 07/25/2024 12:20 PM [facility] RBC 5.30(H) 3.80 - 4.80 M/mcL LAB HEMETOLOGY METHOD 07/25/2024 12:20 PM [facility] Hemoglobin 15.6 11.5 - 16.0 g/dL LAB HEMETOLOGY METHOD 07/25/2024 12:20 PM [facility] Hematocrit 47.5(H) 35.0 - 47.0 % LAB HEMETOLOGY METHOD 07/25/2024 12:20 PM [facility] MCV 89.3 79.0 - 98.0 FL LAB HEMETOLOGY METHOD 07/25/2024 12:20 PM [facility] MCH 29.3 27.0 - 32.0 pcg LAB HEMETOLOGY METHOD 07/25/2024 12:20 PM [facility] MCHC 32.8 32.0 - 37.0 g/dL LAB HEMETOLOGY METHOD 07/25/2024 12:20 PM [facility] RDW 11.9 11.0 - 15.0 % LAB HEMETOLOGY METHOD 07/25/2024 12:20 PM [facility] Platelets 302 130 - 400 K/mcL LAB HEMETOLOGY METHOD 07/25/2024 12:20 PM [facility] MPV 10.7 7.0 - 11.0 FL LAB HEMETOLOGY METHOD 07/25/2024 12:20 PM [facility] NRBC 0.0 <1.0 % LAB HEMETOLOGY METHOD 07/25/2024 12:20 PM [facility] NRBC Absolute 0.00 <0.10 K/mcL LAB HEMETOLOGY METHOD 07/25/2024 12:20 PM [facility] Neutrophils Relative 53.5 % LAB HEMETOLOGY METHOD 07/25/2024 12:20 PM [facility] Lymphocytes Relative 35.9 % LAB HEMETOLOGY METHOD 07/25/2024 12:20 PM [facility] Monocytes Relative 7.9 % LAB HEMETOLOGY METHOD 07/25/2024 12:20 PM [facility] Eosinophils Relative 1.5 % LAB HEMETOLOGY METHOD 07/25/2024 12:20 PM [facility] Basophils Relative 1.0 % LAB HEMETOLOGY METHOD 07/25/2024 12:20 PM [facility] Immature Granulocytes Relative 0.2 % LAB HEMETOLOGY METHOD 07/25/2024 12:20 PM [facility] Neutrophils Absolute 3.23 1.50 - 7.00 K/mcL LAB HEMETOLOGY METHOD 07/25/2024 12:20 PM [facility] Lymphocytes Absolute 2.17 1.00 - 5.00 K/mcL LAB HEMETOLOGY METHOD 07/25/2024 12:20 PM [facility] Monocytes Absolute 0.48 0.20 - 1.00 K/mcL LAB HEMETOLOGY METHOD 07/25/2024 12:20 PM [facility] Eosinophils Absolute 0.09 0.00 - 0.50 K/[facility] LAB HEMETOLOGY METHOD 07/25/2024 12:20 PM EST [facility] Basophils Absolute 0.06 0.00 - 0.20 K/[facility] LAB HEMETOLOGY METHOD 07/25/2024 12:20 PM EST [facility] Immature Granulocytes Absolute 0.01 0.00 - 0.03 K/[facility] LAB HEMETOLOGY METHOD 07/25/2024 12:20 PM EST [facility] Blood Venous blood specimen / Unknown Venipuncture / Unknown 07/25/2024 11:15 AM EST 07/25/2024 11:15 AM EST Renetta Agee MD LAB BLOOD ORDERABLES Final Result Performing Organization Address City/[facility]/ZIP Co de Phone Number [facility] [address] [place] [address], [place] [phone] * Hemoglobin A1c (07/25/2024 11:15 AM EST) [...] Final Result [facility] [address] [place] [address], [place] [phone] * (ABNORMAL) Comprehensive metabolic panel (07/25/2024 11:15 AM EST) Sodium 136 133 - 145 mmol/L LAB CHEMISTRY METHOD 07/25/2024 5:08 PM [facility] Potassium 4.4 3.5 - 5.5 mmol/L LAB CHEMISTRY METHOD 07/25/2024 5:08 PM [facility] Chloride 103 96 - 110 mmol/L LAB CHEMISTRY METHOD 07/25/2024 5:08 PM [facility] CO2 28 21 - 32 mmol/L LAB CHEMISTRY METHOD 07/25/2024 5:08 PM [facility] Anion Gap 5 3 - 11 LAB CHEMISTRY METHOD 07/25/2024 5:08 PM [facility] Glucose 101(H) 70 - 100 mg/dL LAB CHEMISTRY METHOD 07/25/2024 5:08 PM [facility] BUN 16 5 - 25 mg/dL LAB CHEMISTRY METHOD 07/25/2024 5:08 PM [facility] Creatinine 0.98 0.50 - 1.10 mg/dL LAB CHEMISTRY METHOD 07/25/2024 5:08 PM [facility] eGFR 66 >=60 mL/min/1. 73m2 LAB CHEMISTRY METHOD 07/25/2024 5:08 PM [facility] Comment:Calculation based on the??Chronic Kidney Disease Epidemiology Collaboration (CKD-EPI) equation refit??without adjustment for race. BUN/Creatinine Ratio 16.3 LAB CHEMISTRY METHOD 07/25/2024 5:08 PM [facility] Calcium 9.7 8.5 - 10.5 mg/dL LAB CHEMISTRY METHOD 07/25/2024 5:08 PM [facility] AST (SGOT) 22 10 - 42 unit/L LAB CHEMISTRY METHOD 07/25/2024 5:08 PM [facility] ALT (SGPT) 17 10 - 60 unit/L LAB CHEMISTRY METHOD 07/25/2024 5:08 PM [facility] Alkaline Phosphatase 90 42 - 121 unit/L LAB CHEMISTRY METHOD 07/25/2024 5:08 PM EST [facility] Total Protein 6.7 6.0 - 8.0 g/dL LAB CHEMISTRY METHOD 07/25/2024 5:08 PM EST [facility] Albumin 3.9 3.2 - 5.0 g/dL LAB CHEMISTRY METHOD 07/25/2024 5:08 PM [facility] Total Bilirubin 0.3 0.0 - 1.4 mg/dL LAB CHEMISTRY METHOD 07/25/2024 5:08 PM EST [facility] Blood Venous blood specimen / Unknown Venipuncture / Unknown 07/25/2024 11:15 AM EST 07/25/2024 11:15 AM EST Renetta Agee MD LAB BLOOD ORDERABLES Final Result [facility] [address] [place] [address], * Colonoscopy (05/14/2023) Pathologist [facility] Colonoscopy no interpretation , abstracted Anatomical Region Laterality Modality Other Historical Provider HEALTH MAINTENANCE Final Result * Cervical Cancer Screening: HPV (02/25/2023) [facility] Cervical Cancer Screening: HPV negative, abstracted [facility] Provider HEALTH MAINTENANCE Final Result * Hepatitis C Screening (02/12/2023) [facility] Hepatitis C Screening abstracted Historical Provider HEALTH MAINTENANCE Final Result from Last 3 Months or Most Recently Relevant to Health Maintenance Insurance MEDICAID - [place] [employer] MEDICARE Care Teams Chocolate Molder Relationship Specialty Start Date End Date Renetta Agee MD [address] [place] [address] PCP - General 05/12/22
--- OUTSIDE RECORDS SUMMARY | 2024-08-01 16:26 | XMS_ITS | Encounter Summary ---
Author Organization [facility] Address [address] [place] [address] Care Team Providers Care Sales Agent Protective Service Name Role Phone Renetta Agee MD Primary Care Provider +1 [phone] Reason for Referral * Consultation (Routine) - Pending Review Specialty Diagnoses / Procedures Referred By Nigel roberson Referred To Contact Ophthalmology Diagnoses Annual physical exam Renetta Agee MD [address] [place] [address] Phone: tel: fax: Referral ID Status Reason Start Date Expiration Date Visits Requested Visits Authorized [id number] Pending Review Specialty Services Required 07/25/2024 07/25/2025 1 1 * Imaging (Routine) - Pending Review Specialty Diagnoses / Procedures Referred By Nigel roberson Referred To Contact Radiology Diagnoses Annual physical exam Procedures MG Mammo Digital Screening bilat Renetta Agee MD [address] [place] [address] Phone: tel: fax: [address] [address] Phone: tel: Referral ID Status Reason Start Date Expiration Date V isits Requested Visits Authorized [id number] Pending Review 07/25/2024 07/25/2025 1 1 * Consultation (Urgent) - Pending Review Specialty Diagnoses / Procedures Referred By Nigel roberson Referred To Contact Psychiatry Diagnoses Anxiety and depression Renetta Agee MD [address] [place] [address] Phone: tel: fax: Referral ID Status Reason Start Date Expiration Date Visits Requested Visits Authorized [id number] Pending Review Specialty Services Required 07/25/2024 07/25/2025 1 1 Reason for Visit * Reason Comments Annual Exam Encounter Details Date Type Department Care Team ([facility] Contact Info) Description 07/25/2024 10:00 AM EST Office Visit Adult Medicine [facility] [address] [place] [address] Renetta Agee MD [address] [place] [address] Obesity (BMI 30-39.9) (Primary Dx); Hyperlipidemia, unspecified [...] sent through Care Everywhere. * Anxiety Disorder ([place]izen [place]) * Depression: Chronic Disease ([place]) * Well Visit: 50 to 65 Year Men (Citizen Of [place]) documented in this encounter Progress Notes * [...] 1-5 years - patient will follow-up with [facility] - Blood pressure annual screening performed - [...] what REGION should this be scheduled? Answer: [facility] [[id number]] Order Specific Question: In what [place] LOCATION should this be scheduled? Answer: [place] [address] [facility] [[id number]] CBC and differential Standing Status: Future Number [...] AM EST [facility]ointment [facility] at [address] [phone] 10/27/2024 8:30 AM EDT Office Visit [facility] [address] [place] [address] [facility] [address] [facility] [place] Scheduled Orders Name Type Priority Associated [...] * Hemoglobin A1c (07/25/2024 11:15 AM EST) [facility] Hemoglobin A1C 5.2 <6.5 % LAB CHEMISTRY METHOD 07/25/2024 1:56 PM EST [facility] Mean Bld Glu Estim. 103 mg/dL LAB CHEMISTRY METHOD 07/25/2024 1:56 PM EST [facility] Blood Venous blood specimen / Unknown Venipuncture / Unknown 07/25/2024 11:15 AM EST 07/25/2024 11:15 AM EST us Renetta Agee MD LAB BLOOD ORDERABLES Final Result [facility] [address] [place] [address], * Thyroid stimulating hormone with reflex to free t4 and free t3 (07/25/2024 11:15 AM EST) [facility] TSH 3.23 0.40 - 4.00 mcIU/mL LAB CHEMISTRY METHOD 07/25/2024 4:57 PM EST [facility] Blood Venous blood specimen / Unknown Venipuncture / Unknown 07/25/2024 11:15 AM EST 07/25/2024 11:15 AM EST Renetta Agee MD LAB BLOOD ORDERABLES Final Result [facility] [address] [place] [address], [place] [phone] * (ABNORMAL) Lipid panel with reflex to direct LDL (07/25/2024 11:15 AM EST) Cholesterol 238(H) 0 - 200 mg/dL LAB CHEMISTRY METHOD 07/25/2024 5:09 PM EST [facility] Triglycerides 152(H) 0 - [...] Agee MD LAB BLOOD ORDERABLES Final Result [facility] [address] [place] [address], [place] [phone] * (ABNORMAL) Comprehensive metabolic panel (07/25/2024 11:15 [...] PM [facility] Total Protein 6.7 6.0 - 8.0 g/dL LAB CHEMISTRY METHOD 07/25/2024 5:08 PM EST [facility] Albumin 3.9 3.2 - 5.0 g/dL LAB CHEMISTRY METHOD 07/25/2024 5:08 PM [facility] Total Bilirubin 0.3 0.0 - 1.4 mg/dL LAB CHEMISTRY METHOD 07/25/2024 5:08 PM [facility] Blood Venous blood specimen / Unknown Venipuncture / Unknown 07/25/2024 11:15 AM EST 07/25/2024 11:15 AM EST us Renetta Agee MD LAB BLOOD ORDERABLES Final Result [facility] [address] [place] [address], documented in this encounter Visit Diagnoses Diagnosis Obesity (BMI 30-39.9)- Primary Hyperlipidemia, unspecified hyperlipidemia type Anxiety and depression Annual physical exam Routine general medical examination at a health care facility Attention deficit disorder (ADD) without hyperactivity Erythrocytosis Polycythemia, secondary documented in this encounter Care Teams Sales Agent Protective Service Relationship Specialty Start Date End Date Renetta Agee MD [address] [place] [address] PCP - General 05/12/22 documented as of this encounter
== END 2024-08-01 16:49 | disposition home or self-care (01) ==
PROVIDERS: Visit Provider Orthopaedic Surgery
DX: S52.501A Unspecified fracture of the lower end of right radius, initial encounter for closed fracture (principal); M65.4 Radial styloid tenosynovitis [de Quervain]
CPT/HCPCS: 99024

== ENCOUNTER → 2024-08-01 15:36 | Outpatient (BNV) | payer MEDICARE, SELFPAY | PROVIDERS: Visit Provider Radiology Diagnostic Radiology | DX: S52.511D Displaced fracture of right radial styloid process, subsequent encounter for closed fracture with routine healing (principal) | CPT/HCPCS: 73110 ==

== ENCOUNTER 2025-02-06 14:34 | Outpatient (REF) | payer MEDICARE, SELFPAY ==
--- OUTSIDE RECORDS SUMMARY | 2015-04-24 09:51 | XMS_ITS | Continuity of Care Document ---
Author Organization [facility] Address [address] [place] [address] 2,[address] [place] [address] Phone Care Team Providers Care Ply Cutter Name Role Phone Unavailable Unavailable Unavailable Allergies, Adverse Reactions, Alerts Substance Reaction Status Criticality No Known Allergies Active No Inform ation Medications Medication Instructions Dosage Effective Dates (start - stop) Status Comments Calcium 500 + D 500 mg (1,250 mg)-400 unit Tab take one tablet by mouth twice daily - Active Daily Multi 18 mg-400 mcg Tab Take one tablet by mouth daily - Active Plan B One-Step 1.5 mg Tab one tablet by mouth up to 72 hours after unprotected sex - Active sulfacetamide sodium 10 % Eye Drops 1 drop to each eye every 8 hours x 5 days - Active Vitamin D-3 400 unit Cap Take one tablet by mouth daily - Active acetaminophen 500 mg Tab Take one tablet by mouth twice daily as needed - Active Colace 100 mg Cap Take onet tablet by mouth twice daily - Active Lamictal 150 mg Tab Take one tablet by mouth daily - Active Senokot 8.6 mg Tab Take 2 tablet by mouth twice daily - Active lamotrigine 150 mg Tab one tablet po twi ce daily - Active buspirone 10 mg Tab one tablet po twice daily - Active citalopram 20 mg Tab one tablet po once daily - Active Procedures Procedure Date OFFICE/OUTPATIENT VISIT, EST TDAP VACCINE >7 IM IMMUNIZATION ADMIN PREV VISIT, EST, AGE 40-64 OFFICE/OUTPATIENT VISIT, EST URINE TEST OFFICE/OUTPATIENT VISIT, EST [facility] CULTURE SCREEN ONLY Advance Directives Directive Yes / No Effective Date File Name No Information Encounters Encounter Description Practice Location Reason(s) For Visit Diagnoses Date Provider Providers Copied on Encounter [facility], [address] [facility] [address], [place], [place], [id number], [place] tel:[phone] [facility] No Information 5 No Information OFFICE/OUTPA TIENT VISIT, EST [facility], [address] [facility] [address], [place], [place], [id number], [place] tel:[phone] [facility] sore throat (chief complaint) Acute pharyngitis 5 No Information [facility], [address], [place], [place], [id number], [place] tel:[phone] [facility] No Information 4 No Information PREV VISIT, EST, AGE 40-64 [facility], [address], [place], [place], [id number], [place] tel:[phone] [facility] preventive exam (chief complaint) Routine Medical ExamNEED FOR PROPHYLACTIC VACCINATION WITH COMBINED DIPHTHERIA-TE TANUS-PERTUSS IS (DTP) (DTAP) VACCINEMultip le neviDecreased visual acuityLump in vaginaRoutine Medical Exam 4 No Information OFFICE/OUTPA TIENT VISIT, EST [facility], [address] [facility] [facility] [address], [place], [place], [id number], [place] tel:[phone] [facility] [place] F/U LAB RESULTS (chief complaint) Nondependent tobacco use disorderDepre ssive disorder, not elsewhere classifiedLAB ORATORY EXAM NOS 2 No Information [facility], [address], [place], [place], [id number], [place] tel:[phone] [facility] No Information 2 Services [address]abling. [address] [place], [address]. tel:[phone] [facility], [address], [place], [place], [id number], [place] tel:[phone] [facility] No Information 2 Services Enabling. [address] [place], [address]. tel:[phone] [facility], [address], [place], [place], [id number], [place] tel:[phone] Converted Locations No Information 2 No Information [facility], [address], [place], [place], [id number], [place] tel:[phone] [facility] Other general counseling and advice on contraceptive managementHip joint replacementBr east screening, unspecified 2 No Information [facility], [address], [place], [place], [id number], [place] tel:[phone] [facility] Nondependent tobacco use disorderConju nctivitis, unspecifiedAc lana pharyngitis 2 No Information [facility], [address], [place], [place], [id number], [place] tel:[phone] Converted Locations No Information 2 No Information [facility], [address], [place], [place], [id number], [place] tel:[phone] Converted Locations No Information 1 No Information [facility], [address], [place], [place], [id number], [place] tel:[phone] [facility] Pain in joint involving pelvic region and thigh 1 No Information [facility], [address], [place], [place], [id number], [place] tel:[phone] Converted Locations No Information 1 Z-Converted Provider. . [facility], [address], [place], [place], [id number], tel:[phone] [facility] Anxiety disorder in conditions classified elsewhereNond ependent alcohol abuse, in remissionDepr essive disorder, not elsewhere classifiedOth er congenital deformity of hip (joint)Routin e general medical examination at a health care facility Z-Converted Provider. . Family History Family Member Type Diagnosis Age At Onset FH - MOTHER (DDMS) Problem (finding) hypercholesterole carole FH - FATHER (DDMS) Problem (finding) hypercholesterole carole FH - MOTHER (DDMS) Problem (finding) hypercholesterole carole FH - FATHER (DDMS) Problem (finding) hypercholesterole carole Immunizations Vaccine Date Status Comments Tdap administered Source: New Imm unization Record Tetanus and Diphtheria Toxoid administere d Source: New Immunization Record Payers Payer name Insurance type Covered green party ID Cassidy peguero(s) [facility] [employer] CI [id number] Social History Type Description Quantity Date Captured Comments Sex Female Smoking Status No Information Sexual Orientation Straight or heterosexual Chief Complaint And Reason For Visit No Information Reason For Referral Reason For Referral No Information Plan Of Treatment Date Type Action Status Goal CT-Colonography. Due on due Goal FIT-DNA. Due on due Goal Unhealthy drug use screening . Due on due Goal Zoster vaccine (1st). Due on due Goal Document SOGI Information. D ue on due Goal Lipid panel. Due on 015 due Goal Td vaccine. Due on 24 due Goal APE. Due on due Goal Mammogram. Due on due Goal PAP. Due on due Goal Pap/HPV testing. Due on due Goal Tdap. Due on due Goal Influenza vaccine. Due on due Referral Ordered: Referral: Dermatology. Evaluate and treat. ordered Referral Ordered: COLONOSCOPY SCREENING ordered Referral Ordered: Referral: [employer] RADIO OPERATOR. Evaluate and treat. Appointment date/timeframe: 01/11/2014 ordered Referral Ordered: Referral: Toilet Products Molder. Evaluate and treat. ordered Referral Ordered: MAMMOGRAM SCREENING, BILATERAL Appointment date/timeframe: 12/04/2013 ordered History Of Present Illness Encounter Date Complaint History Of Prese nt Illness sore throat Symptoms are ass ociated with smoker. Symptoms are not associated with recent travel and sick family member. Aggravating factors include smoke. Associated symptoms include cough, fever, nasal congestion, otalgia and pharyngitis. Pertinent negatives include chills/rigors, dyspnea, facial pain, fatigue, headache, postnasal drainage, rash, rhinitis, sinus pressure or wheezing. 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
--- OUTSIDE RECORDS SUMMARY | 2025-02-06 15:32 | XMS_ITS | Clinical Summary ---
Author Organization [facility] [address] [facility] Address [address] [place] [phone] Phone Care Team Providers Care Accreditation Manager Name Role Phone Renetta Agee MD Primary Care Provider [phone]- [phone] Allergies No known active allergies Medications lamoTRIgine (LaMICtal) 150 mg tablet Take 1 tablet (150 mg total) by mouth 1 (one) time each day. 90 each 10/28/19 25 Active Additional Information Patient taking differently: (No dose reported), oral Daily,Patient takes 3 tablets daily, Reported on 12/22/2024 atomoxetine (STRATTERA) 25 mg capsule TAKE 1 CAPSULE BY MOUTH 2 TIMES A DAY. SWALLOW CAPSULE WHOLE DO NOT OPEN. IF OPENED ACCIDENTALLY, DO NOT TOUCH EYES WASH HANDS IMMEDIATELY (PRODUCT IS AN EYE IRRITANT). 14 capsule 11/14/19 25 Active atorvastatin (LIPITOR) 10 mg tablet TAKE 1 TABLET BY MOUTH 1 TIME EACH DAY. 90 tablet 01/26/20 25 Active citalopram (CeleXA) 20 mg tablet TAKE 1 TABLET (20 MG TOTAL) BY MOUTH ONE TIME EACH DAY 90 tablet 01/26/20 25 Active busPIRone (BUSPAR) 15 mg tablet TAKE 1 TABLET (15 MG TOTAL) BY MOUTH ONE TIME EACH DAY. 90 tablet 01/26/20 25 Active atorvastatin (LIPITOR) 10 mg tablet Take 1 tablet (10 mg total) by mouth 1 (one) time each day. 90 each 10/28/19 25 025 Discontinued citalopram (CeleXA) 20 mg tablet Take 1 tablet (20 mg total) by mouth 1 (one) time each day. 90 each 10/28/19 25 025 Discontinued busPIRone (BUSPAR) 15 mg tablet Take 1 tablet (15 mg total) by mouth 1 (one) time each day. 90 each 10/28/19 25 025 Discontinued Active Problems Problem Noted Date Diagnosed Date Cigarette smoker motivated to quit 09/28/2023 Obesity (BMI 30-39.9) 09/28/2023 Hypercholesterolemia 05/28/2023 Anxiety and depression 02/19/2023 Attention deficit disorder (ADD) without hyperac tivity 02/19/2023 Encounters Date Type Department Care Team Description 01/17/2025 Telephone [facility] Hematology Oncology [address] [place] [phone] Karla Mathias MA 12/22/2024 1:30 PM EDT Lab Draw Station - [facility] [address] [phone] Erythrocytosis; Other abnormality of red blood cells 12/22/2024 1:00 PM EDT Office Visit [facility] Hematology Oncology [address] [place] [phone] Emily Fernando DO Erythrocytosis (Primary Dx); Other abnormality of red blood cells from Last 3 Months Surgical History Surgery [...] Smoking Tobacco: Every Day Smokeless Tobacco: Never Tobacco Cessation:Ready to Q uit: Not Asked; Counseling Given: Not Answered Alcohol Use Standard Drinks/Week Comments Not Currently 0 (1 standard drink = 0.6 oz pur e alcohol) Comments No Sex and Gender Information Value Date Recorded Sex Assigned at Female 07/28/2024 1:30 PM EST Legal Sex Female 8:22 PM EST Gender Identity Female 07/28/2024 1:30 PM EST Sexual Orientation Straight 07/28/2024 1: 30 PM EST Obstetrics History Last Filed Vital Signs Vital Sign Reading Time Taken Comments Blood Pressure 136/54 12/22/2024 1:01 PM EDT Pulse 73 12/22/2024 1:01 PM EDT Temperature 36.5 C (97.7 F) 12/22/2024 1:01 PM EDT Respiratory Rate 16 10/27/2024 8:37 AM EDT Oxygen Saturation 98% 12/22/2024 1:01 PM EDT Inhaled Oxygen Concentration - - Weight 81.6 kg (180 lb) 12/22/2024 1:01 PM EDT Height 160 cm (5' 3 ) 12/22/2024 1:01 PM EDT Body Mass Index 31.89 12/22/2024 1:01 PM EDT Plan of Treatment Upcoming Encounters Date Type Department Care Team (Late st Contact Info) Description 02/09/2025 9:30 AM EDT Office Visit [address] [phone] Renetta Agee MD [address] [place] [address] 02/16/2025 11:45 AM EDT Office Visit [facility] Hematology Oncology [address] [place] [phone] Emily Fernando, DO [address] [place] [address] 07/27/2025 10:00 AM EST Office Visit [address] [phone] Renetta Agee MD [address] [place] [address] Health Maintenance Due Date Last Done Comments Depression Screening 06/14/2024 Influenza Vaccine (#1) 2025 COVID-19 Vaccine ( - 2023-2 5 season) 2025 Postponed from 02/12 (Patient Refused) DTaP,Tdap,and Td Vaccines (1 - Tdap) 06/14/2025 Postponed from 06/24 (Patient Refused) HIV Screening 06/14/2025 Postponed from 07/08/2023 (Patient Refused) Pneumococcal Vaccine: 50+ Years (1 of 2 - PCV) 06/14/2025 Postponed from 06/14 (Patient Refused) Zoster Vaccines (1 of 2) 06/14/2025 Pos tponed from 2013 (Patient Refused) Medicare Annual Wellness Visit 07/16/2025 Postponed from 07/08 (Patient Refused) Social Influencers of Health Screening 07/25/2025 07/25/2024 Colorectal Cancer Screening: Colonoscopy 05/14/2026 05/14/2023 Breast Cancer Screening 08/02/2026 08/02/2024 Cervical Cancer Screening: HPV 02/26/2028 02/25/2023 Cholesterol Screening (Lipid Panel) 07/25/2029 07/25/2024, 05/27/2023 RSV Immunization Adult Patients (1 - 1-dose 75+ series) 2038 Hepatitis C Screening Completed 02/12/2023 HIB Vaccines Aged Out No longer eligi ble based on patient's age to complete this topic HPV Vaccines Aged Out No longer eligi ble based on patient's age to complete this topic Hepatitis A Vaccines Aged Out No long er eligible [...] age to complete this topic Meningococcal B Vaccine Aged Out No l onger eligible based on patient's age to complete this topic RSV Immunization Patients Under 20 months Aged Out No longer eligible b ased on patient's age to complete this topic Varicella Vaccines Aged Out No longer eligible based on patient's age to complete this topic Procedures Procedure Name Priority Date/Time Associated Diagnosis Comments JAK2 GENE, V617F MUTATION, QUANTITATIVE, MOLECULAR STUDY Routine 01/23/2025 10:46 AM EDT Erythrocytosis Hyperlipidemia, unspecified hyperlipidemia type CBC WITH AUTO DIFFERENTIAL Routine 12/22/2024 1:29 PM EDT Erythrocytosis ERYTHROPOIETIN Routine 12/22/2024 1:29 PM EDT Erythrocytosis Other abnormality of red blood cells FERRITIN Routine 12/22/2024 1:29 PM EDT Erythrocytosis Other abnormality of red blood cells IRON AND TIBC Routine 12/22/2024 1:29 PM EDT Erythrocytosis Other abnormality of red blood cells CBC AND DIFFERENTIAL Routine 12/22/2024 1:29 PM EDT Erythrocytosis MG MAMMO DIGITAL SCREENING W RIC BILAT Routine 08/02/2024 9:59 AM EST Annual physical exam Screening mammogram for breast cancer LIPID PANEL WITH REFLEX TO DIRECT LDL Routine 07/25/2024 11:15 AM EST Annual physical exam HM COLONOSCOPY Routine 05/14/2023 HM HPV Routine 02/25/2023 HM HEPATITIS C SCREENING Routine 02/12/2023 from Last 3 Months or Most Recently Relevant to Health Maintenance Results * (ABNORMAL) JAK2 gene, V617F mutation, quantitative, molecular study (01/23/2025 10:46 AM EDT) Pathologist [facility] JAK2 (V617F) Mutation DETECTED( A) Not detected 01/30/2025 10:29 AM EDT [facility] WBC Percent with V617F Mutation 0.2(H) <0.1 % 01/30/2025 10:29 AM EDT [facility] Comment: This procedure uses real-time polymerase chain reaction amplification and detection to quantify the percentage of white blood cells containing the V617F (G>T at position 617) point mutation in the autoinhibitory pseudokinase domain of the JAK2 protein. The lower limit of quantitation is 0.1% (1 in 1000 cells). A Not detected result does not preclude the presence of this or another point mutation in this gene. This test uses commercial reagents that have not been approved or cleared by the FDA. The FDA has determined that such clearance or approval is not necessary. The performance characteristics of this procedure were determined by [facility]. This test is performed pursuant to a license agreement with [employer] Test performed at [facility], [address] , [place] [address] Farzana Balderas MD, PhD - Senior Health Educator Blood Venous blood specimen / Unknown Venipuncture / Unknown 01/23/2025 10:46 AM EDT 01/23/2025 11:50 AM EDT Emily Fernando DO LAB MOLECULAR DIAGNOS TICS ORDERABLES Final Result [facility] [address] [place] [address] * (ABNORMAL) CBC auto differential (12/22/2024 1:29 PM EDT) WBC 5.5 4.8 - 10.8 K/mcL LAB HEMETOLOGY METHOD 12/22/2024 4:55 PM EDT [facility] RBC 4.80 3.80 - 4.80 M/mcL LAB HEMETOLOGY METHOD 12/22/2024 4:55 PM EDT [facility] Hemoglobin 13.7 11.5 - 16.0 g/dL LAB HEMETOLOGY METHOD 12/22/2024 4:55 PM EDT [facility] Hematocrit 43.2 35.0 - 47.0 % LAB HEMETOLOGY METHOD 12/22/2024 4:55 PM EDT [facility] MCV 90.8 79.0 - 98.0 FL LAB HEMETOLOGY METHOD 12/22/2024 4:55 PM EDT [facility] MCH 28.8 27.0 - 32.0 pcg LAB HEMETOLOGY METHOD 12/22/2024 4:55 PM EDT [facility] MCHC 31.7(L) 32.0 - 37.0 g/dL LAB HEMETOLOGY METHOD 12/22/2024 4:55 PM EDT [facility] RDW 12.0 11.0 - 15.0 % LAB HEMETOLOGY METHOD [facility]/22[facility]24 [facility] Plate[facility] 262 130 - 400 K/mcL LAB HEMETOLOGY METHOD 12/22/2024 4:55 PM EDT [facility] MPV 10.9 7.0 - 11.0 FL LAB HEMETOLOGY METHOD 12/22[facility]2024 4[facility] NRBC 0.0 <1.0 % LAB HEMETOLOGY METHOD 12/22/2024 4:55 PM [facility] NRBC Absolute 0.00 <0.10 K/mcL LAB HEMETOLOGY METHOD 12/22/2024 4:[facility] Neutrophils Relative 49.2 % LAB HEMETOLOGY METHOD 12/22/2024 4:[facility] Lymphocytes Relative 41.2 % LAB HEMETOLOGY METHOD 12/22/2024 4:55 PM [facility] Monocytes Relative 6.9 % LAB HEMETOLOGY METHOD 12/22/2024 4:55 PM [facility] Eosinophils Relative 1.4 % LAB HEMETOLOGY METHOD 12/22/2024 4:55 [facility] Basophils Relative 0.9 % LAB HEMETOLOGY METHOD 12/22/2024 4:55 [facility] Immature Granulocytes Relative 0.4 % LAB HEMETOLOGY METHOD 12/22/2024 4:55 [facility] Neutrophils Absolute 2.73 1.50 - 7.00 K/mcL LAB HEMETOLOGY METHOD 12/22/2024 4:55 [facility] Lymphocytes Absolute 2.28 1.00 - 5.00 K/mcL LAB HEMETOLOGY METHOD 12/22/2024 4:55 PM EDT [facility] Monocytes Absolute 0.38 0.20 - 1.00 K/mcL LAB HEMETOLOGY METHOD 12/22/2024 4:55 PM EDT [facility] Eosinophils Absolute 0.08 0.00 - 0.50 K/mcL LAB HEMETOLOGY METHOD 12/22/2024 4:55 PM EDT [facility] Basophils Absolute 0.05 0.00 - 0.20 K/mcL LAB HEMETOLOGY METHOD 12/22/2024 4:55 PM EDT [facility] Immature Granulocytes Absolute 0.02 0.00 - 0.03 K/mcL LAB HEMETOLOGY METHOD 12/22/2024 4:55 PM EDT [facility] Blood Venous blood specimen / Unknown Venipuncture / Unknown 12/22/2024 1:29 PM EDT 12/22/2024 4:35 PM EDT Emily Fernando DO LAB BLOOD ORDERABLES Final Result [facility] [address] [place] [address], * Erythropoietin (12/22/2024 1:29 PM EDT) Erythropoietin 11.7 2.6 - 18.5 mIU/mL 12/25/2024 2:49 PM EDT [facility] Comment: Test performed at [facility], [address] [place], [place] [address] Farzana Balderas MD, PhD - Senior Health Educator Blood Venous blood specimen / Unknown Venipuncture / Unknown 12/22/2024 1:29 PM EDT 12/22/2024 4:35 PM EDT Emily Fernando DO LAB BLOOD ORDERABLES Final Result [facility] [address] [place] [place] [address] * Iron and TIBC (12/22/2024 1:29 PM EDT) Iron 106 40 - 150 mcg/dL LAB CHEMISTRY METHOD 12/22/2024 4:59 PM EDT [facility] TIBC 336 250 - 450 mcg/dL LAB CHEMISTRY METHOD 12/22/2024 4:59 PM EDT [facility] Iron Saturation 32 15 - 50 % LAB CHEMISTRY METHOD 12/22/2024 4:59 PM EDT [facility] Blood Venous blood specimen / Unknown Venipuncture / Unknown 12/22/2024 1:29 PM EDT 12/22/2024 4:35 PM EDT Emily Fernando DO LAB BLOOD ORDERABLES Final Result [facility] [address] [place] [address], [place] [phone] * Ferritin (12/22/2024 1:29 PM EDT) Ferritin 93 8 - 252 ng/mL LAB CHEMISTRY METHOD 12/22/2024 4:59 PM EDT [facility] Blood Venous blood specimen / Unknown Venipuncture / Unknown 12/22/2024 1:29 PM EDT 12/22/2024 4:35 PM EDT Emily Fernando DO LAB BLOOD ORDERABLES Final Result [facility] [address] [place] [address], [place] [phone] * (ABNORMAL) MG Mammo Digital Screening w Ric bilat (08/02/2024 9:59 AM EST) Anatomical Region Laterality Modality Breast Bilateral Mammography 08/02/2024 10:2 7 AM EST Impressions 08/02/2024 10:28 AM EST 1. Right breast nodule, for which targeted ultrasound is recommended. The patient will be called back. 2. No mammographic evidence of malignancy is seen in the left breast. BI-RADS CATEGORY: 0 - INCOMPLETE - NEED ADDITIONAL IMAGING EVALUATION RECOMMENDATION: Ultrasound is recommended for the Right Breast. Mammo Location: [facility], [address] [place] [address], [id number], . -------- FINAL REPORT -------- Dictated By: Erika Clark Dictated Date: 08/02/2024 10:27 ET Assigned Physician: Erika Clark Reviewed and Electronically Signed By: Erika Clark Signed Date: 08/02/2024 10:28 ET Workstation ID: [id number] Transcribed By: Self Edit Transcribed Date: 08/02/2024 10:27 ET Narrative 08/02/2024 10:28 AM EST HISTORY: Screening. Baseline exam. COMPARISON: No comparison imaging. TECHNIQUE: Bilateral digital breast tomosynthesis was performed in the CC and MLO projections. Computer aided detection with Rescale AI 3D 3.1 was employed. BREAST DENSITY: B - There are scattered areas of fibroglandular density. FINDINGS: A circumscribed 9 mm nodule is seen in the 10:00 position of the right breast, approximately 7 to 8 cm from the nipple, possibly a lymph node. Targeted ultrasound is recommended for further assessment. No grouped microcalcifications or areas of architectural distortion are seen. The skin and vascularity are unremarkable. Procedure Note Erika Clark MD - 08/02/2024 HISTORY: Screening. Baseline exam. COMPARISON: No comparison imaging. TECHNIQUE: Bilateral digital breast tomosynthesis was performed in the CCand MLO projections. Computer aided detection with Rescale AI 3D 3.1was employed. BREAST DENSITY: B - There are scattered areas of fibroglandular density. FINDINGS: A circumscribed 9 mm nodule is seen in the 10:00 position of the rightbreast, approximately 7 to 8 cm from the nipple, possibly a lymph node.Targeted ultrasound is recommended for further assessment. No grouped microcalcifications or areas of architectural distortion areseen. The skin and vascularity are unremarkable. IMPRESSION: 1. Right breast nodule, for which targeted ultrasound is recommended. Thepatient will be called back. 2. No mammographic evidence of malignancy is seen in the left breast. BI-RADS CATEGORY: 0 - INCOMPLETE - NEED ADDITIONAL IMAGING EVALUATION RECOMMENDATION: Ultrasound is recommended for the Right Breast. Mammo Location: [facility], [address] [place] [address], [id number], . -------- FINAL REPORT -------- Dictated By: Erika Clark Dictated Date: 08/02/2024 10:27 ET Assigned Physician: Erika Clark Reviewed and Electronically Signed By: Erika Clark Signed Date: 08/02/2024 10:28 ET Workstation ID: [id number] Transcribed By: Self Edit Transcribed Date: 08/02/2024 10:27 ET us Renetta Agee MD IMG BI PROCEDURES Final Res ult * (ABNORMAL) Lipid panel with reflex to direct LDL (07/25/2024 11:15 AM EST) Cholesterol 238(H) 0 - 200 mg/dL LAB CHEMISTRY METHOD 07/25/2024 5:09 PM [facility] Triglycerides 152(H) 0 - 150 mg/dL LAB CHEMISTRY METHOD 07/25/2024 5:09 PM EST [facility] HDL 84 >=40 mg/dL LAB CHEMISTRY METHOD 07/25/2024 5:09 PM EST [facility] LDL Calculated 124(H) 0 - 100 mg/dL LAB CHEMISTRY METHOD 07/25/2024 5:09 PM [facility] VLDL Cholesterol Horace 30.4 mg/dL LAB CHEMISTRY METHOD 07/25/2024 5:09 PM [facility] Non HDL Chol. (LDL+VLDL) 154(H) <145 mg/dL LAB CHEMISTRY METHOD 07/25/2024 5:09 PM EST [facility] Chol/HDL Ratio 2.8 0.0 - 4.4 LAB CHEMISTRY METHOD 07/25/2024 5:09 PM EST [facility] Blood Venous blood specimen / Unknown Venipuncture / Unknown 07/25/2024 11:15 AM EST 07/25/2024 11:15 AM EST Renetta Agee MD LAB BLOOD ORDERABLES Final Result [facility] [address] [place] [address], [place] [phone] * Colonoscopy (05/14/2023) [facility] Colonoscopy no interpretation , abstracted Anatomical Region Laterality Modality Other Historical Provider HEALTH MAINTENANCE Final Result * Cervical Cancer Screening: HPV (02/25/2023) [facility] Cervical Cancer Screening: HPV negative, abstracted [facility] Provider HEALTH MAINTENANCE Final Result * Hepatitis C Screening (02/12/2023) [facility] Hepatitis C Screening abstracted [facility] Provider HEALTH MAINTENANCE Final Result from Last 3 Months or Most Recently Relevant to Health Maintenance Insurance MEDICAID - [place] [employer] MEDICARE Care Teams Accreditation Manager Relationship Specialty Start Date End Date Renetta Agee MD [address] [place] [address] PCP - General 05/12/22
--- OUTSIDE RECORDS SUMMARY | 2025-02-06 15:32 | XMS_ITS | Clinical Summary ---
Author Organization [facility] Address [address] [place] [phone] Phone Care Team Providers Care Cable Splicing Technician Name Role Phone Saira Mccall [employer] Primary Care Provider +1- [phone] Allergies No known active allergies Active Problems Problem Noted Date Diagnosed Date Osteoarthritis of hip 05/03/2012 Overview (08/04/2014): Osteoarthritis of hip Immunizations Immunization Administration Dates Next Due Influenza, Unspecified Formulation 03/26/2011(Yap: Patient Decision) Pneumococcal polysaccharide PPSV23 03/26/2011(Yap: Patient Decision) Social History Tobacco Use Types Packs/Day Years Used Date Smoking Tobacco: Every Day Cigarettes Education Answer Date Recorded Are you interested in more education? Not on josefina e 10/18/2022 Are you concerned about learning? Not on file 10/18/2022 No 10/18/2022 No 10/18/2022 Digital Access Answer Date Recorded No 11/08/2022 No 11/08/2022 No 11/08/2022 Reliable internet access at home? Not on file 11/08/2022 Device with a working camera? Not on file Comments Unknown Sex and Gender Information Value Date Recorded Sex Assigned at Not on file Legal Sex Female 6:07 PM EST Gender Identity Not on file Sexual Orientation Not on file Last Filed Vital Signs Vital Sign Reading Time Taken Comments Blood Pressure 114/80 04/24/2014 9:09 AM EST Pulse 74 04/24/2014 9:09 AM EST Temperature 36.5 C (97.7 F) 04/24/2014 9:09 AM EST Respiratory Rate - - Oxygen Saturation - - Inhaled Oxygen Concentration - - Weight 64.2 kg (141 lb 9.6 oz) 04/24/2014 9:06 A M EST Height 160 cm (5' 3 ) 04/24/2014 9:06 AM EST Body Mass Index 25.08 04/24/2014 9:06 AM EST Plan of Treatment Health Maintenance Due Date Last Done Comments LIPID PANEL 1963 DEPRESSION SCREENING 1975 SMOKING Hx and SMOKELESS TOBACCO SCREENING 1976 HEPATITIS C SCREENING 1981 HIV ONE-TIME SCREENING (18-6 5 YEARS) 1981 PNEUMOCOCCAL VACCINES (50+ years) (1 of 2 - PCV) 1982 PAP SMEAR 1984 MAMMOGRAM 2003 COLOGUARD 2008 COLONOSCOPY 2008 COLORECTAL CANCER SCREENING 2008 FIT TEST 2008 FOBT 2008 SIGMOIDOSCOPY 2008 VIRTUAL COLONOSCOPY 2008 ZOSTER VACCINES (1 of 2) 2013 Adult Td,Tdap Booster 10/20/2023 10/19/2013 , 06/14/2002 COVID-19 VACCINE (3 - 2023-2 5 season) 2024 11/04/2020, 10/14/2020 RSV VACCINE (1 - 1-dose 75+ series) 2038 HEPATITIS A VACCINES Aged Out No long er eligible based on patient's age to complete this topic HIB VACCINES Aged Out No longer eligi ble based on patient's age to complete this topic MENINGOCOCCAL VACCINES (ACWY) Aged Out No longer eligible based on patient's age to complete this topic MENINGOCOCCAL VACCINES (B) Aged Out N o longer eligible based on patient's age to complete this topic Medical Devices Not on file Insurance RO[address] [place] [address] [place] [address] [place] [address] [address] [place] [address] [place] [address] [place] [address] [facility] Care Teams Cable Splicing Technician Relationship Specialty Start Date End Date Saira Mccall NP PCP - General 10/23/14 Additional Source Comments The information contained in this document represents components of the legal health record. It is not the complete legal health record.[facility]
[2025-02-06 16:15] LABS: MANUAL DIFF FLAG NO
[2025-02-06 16:24] LABS: Hematocrit 41.5 % (37.0-47.0); Hemoglobin 13.9 g/dl (12.0-16.0); Imm Gran Abs Auto 0.02 X10*3/uL (0.00-0.03); Imm Gran Pct Auto 0.3 % (0.0-0.4); Lymphocytes Absolute Auto 2.6 X10*3/uL (1.2-4.9); Mean Corpuscular HGB Conc 33.5 g/dl (31.0-35.0); Mean Corpuscular Hemoglobin 30.2 pg (27.0-33.0); Mean Corpuscular Volume 90.2 fL (80.0-98.0); NRBC Abs Auto 0.000 X10*3/uL (0.0-0.012); NRBC Pct Auto 0.0 /100WBC (0.0-0.2); Platelet Count 261 X10*3/uL (160-400); Red Blood Count 4.60 X10*6/uL (4.20-5.50); White Blood Count 7.5 X10*3/uL (4.8-10.8)
[2025-02-06 16:57] LABS: Alanine Aminotransferase 15 U/L (0-31); Albumin Level 4.5 g/dL (3.5-5.0); Alkaline Phosphatase 83 U/L (39-117); Anion Gap 12 (12-20); Aspartate Amino Transferase 28 U/L (5-31); Blood Urea Nitrogen 18 mg/dL (9-16); Calcium 9.5 mg/dL (8.4-10.2); Carbon Dioxide 25 mmol/L (22-29); Chloride 107 mmol/L (96-108); Cholesterol 186 mg/dL (<200); Estimated Glomerular Filt Rate > 60; HDL Cholesterol 80 mg/dL (>40); Potassium 4.0 mmol/L (3.3-5.1); Sodium 140 mmol/L (135-145); Total Protein 6.9 g/dL (6.5-8.0); Triglycerides 82 mg/dL (<150)
== END 2025-02-06 14:35 | disposition home or self-care (01) ==
LOC: HO.HHCL 14:34
PROVIDERS: PCP Internal Medicine; Visit Provider Registered Nurse Psychiatric/Mental Health
DX: Z51.81 Encounter for therapeutic drug level monitoring (principal); Z79.899 Other long term (current) drug therapy
CPT/HCPCS: 36415; 80053; 80061; 82248; 84443; 85025